=== PATIENT | female | born 1975 | race Caucasian/White ===

== ENCOUNTER 2018-12-03 11:33 | Emergency (ER) | payer OTHER ==
[2018-12-03 11:49] VITALS: PULSE 91; TEMP 98.1
--- NOTE | 2018-12-03 12:36 | ED ---
General Adult HPI - General Chief complaint: ENT Stated complaint: Ear Pain/sore throat Time Seen by Provider: 12/03/18 12:07 Source: patient, RN notes reviewed Mode of arrival: ambulatory Limitations: no limitations - History of Present Illness Initial comments: 43-year-old female presents to the emergency department for left ear pain 1 hour. Patient states she has been sick with bronchitis for about a week and has had sinus pressure as well. Patient states that she went to blow her nose today and had a severe pain in the left ear. Patient denies fevers or chills. Patient denies shortness of breath. Patient also complains of a sore throat.Patient has no other complaints at this time including shortness of breath, chest pain, abdominal pain, nausea or vomiting, headache, or visual changes. - Related Data Home Medications Medication Instructions Recorded Confirmed Ranitidine HCl [Zantac] 150 mg PO BID 04/07/14 12/03/18 amLODIPine BESYLATE/BENAZEPRIL 10 mg PO DAILY 04/07/14 12/03/18 [Lotrel 5-10 mg Capsule] metFORMIN HCL 1,000 mg PO DAILY 04/07/14 12/03/18 Acyclovir 400 mg PO TID PRN 12/03/18 12/03/18 Albuterol Inhaler [Ventolin Hfa 1 - 2 puff INHALATION RT-Q6H PRN 12/03/18 12/03/18 Inhaler] Atorvastatin [Lipitor] 20 mg PO HS 12/03/18 12/03/18 Azithromycin [Zithromax Z-pack] See Taper PO DAILY 12/03/18 12/03/18 DULoxetine HCL [Cymbalta] 60 mg PO DAILY 12/03/18 12/03/18 Flecainide [Tambocor] 50 mg PO Q12HR 12/03/18 12/03/18 Insulin Glargine,Hum.rec.anlog 44 unit SQ PC-SUPPER 12/03/18 12/03/18 [Basaglar Kwikpen U-100] Insulin Regular, Human [humulin R 25 unit SQ BID 12/03/18 12/03/18 U-500 Kwikpen] LORazepam [Ativan] 2 mg PO TID PRN 12/03/18 12/03/18 Loratadine [Claritin] 10 mg PO DAILY 12/03/18 12/03/18 Metoprolol Succinate [Toprol Xl] 100 mg PO DAILY 12/03/18 12/03/18 Warfarin [Coumadin] 2.5 mg PO DAILY 12/03/18 12/03/18 predniSONE See Taper PO DAILY 12/03/18 12/03/18 Previous Rx's Medication Instructions Recorded Amoxicillin/Potassium Clav 1 tab PO Q12HR #20 tab 12/03/18 [Augmentin 875-125 Tablet] Fluticasone Propionate [Flonase 1 spray EA NOSTRIL DAILY PRN #9.9 12/03/18 Allergy Relief] ml Allergies Allergy/AdvReac Type Severity Reaction Status Date / Time No Known Allergies Allergy Verified 12/03/18 12:16 Review of Systems ROS Statement: Those systems with pertinent positive or pertinent negative responses have been documented in the HPI. ROS Other: All systems not noted in ROS Statement are negative. Past Medical History Past Medical History: Asthma, Diabetes Mellitus, Hypertension Additional Past Medical History / Comment(s): Herpes type 2, "some kind of heart condition, electrical part doesn't work" divirticulitis History of Any Multi-Drug Resistant Organisms: None Reported Past Surgical History: Orthopedic Surgery Additional Past Surgical History / Comment(s): left knee surgery Past Psychological History: Anxiety, Depression Smoking Status: Former smoker Past Alcohol Use History: None Reported Past Drug Use History: None Reported General Exam Limitations: no limitations General appearance: alert, in no apparent distress Head exam: Present: atraumatic, normocephalic, normal inspection Eye exam: Present: normal appearance, PERRL, EOMI. Absent: scleral icterus, conjunctival injection, periorbital swelling ENT exam: Present: normal exam, normal oropharynx (No tonsillar exudates noted bilaterally, uvula midline), mucous membranes moist, normal external ear exam. Absent: TM's normal bilaterally ([Membrane erythematous, no perforation noted at this time) Neck exam: Present: normal inspection, full ROM. Absent: tenderness, meningismus, lymphadenopathy Respiratory exam: Present: normal lung sounds bilaterally. Absent: respiratory distress, wheezes, rales, rhonchi, stridor Cardiovascular Exam: Present: regular rate, normal rhythm, normal heart sounds. Absent: systolic murmur, diastolic murmur, rubs, gallop, clicks Neurological exam: Present: alert, oriented X3, CN II-XII intact Psychiatric exam: Present: normal affect, normal mood Course Vital Signs 12/03/18 12/03/18 11:47 12:38 Temperature 98.1 F Pulse Rate 91 91 Respiratory 22 16 Rate Blood Pressure 136/84 149/91 O2 Sat by Pulse 96 95 Oximetry Medical Decision Making - Medical Decision Making 43-year-old female presents for left ear pain after coughing and blowing her nose earlier today. Patient states she felt a pop in her left ear. She has had sinus congestion and a cough for about a week. On exam patient does have an erythematous left tympanic membranes however I do not see any evidence of perforation. However did discuss attempting to keep water out of ear until she can follow up with her primary care provider or ENT. Patient was started on az ithromycin yesterday, I will switch this to Augmentin as as of now her chief complaint is congestion and ear pain. Patient will follow up with primary care. She will return here if she has any worsening symptoms. Disposition Clinical Impression: Otitis media, Pharyngitis Disposition: HOME SELF-CARE Condition: Good Instructions (If sedation given, give patient instructions): Earache (ED) Additional Instructions: Please take Augmentin as directed. Please follow-up with primary care or ENT in 1-2 days. Please return to the emergency department if you have any worsening symptoms. Prescriptions: Amoxicillin/Potassium Clav [Augmentin 875-125 Tablet] 1 tab PO Q12HR #20 tab Fluticasone Propionate [Flonase Allergy Relief] 1 spray EA NOSTRIL DAILY PRN #9.9 ml PRN Reason: Congestion Is patient prescribed a controlled substance at d/c from ED?: No Referrals: Angel Burrows DO [Primary Care Provider] - 1-2 days Randy Rivero DO [Doctor of Osteopathic Medicine] - 1-2 days Time of Disposition: 12:34
[2018-12-03 12:39] VITALS: BP 149/91; RESP 16
== END 2018-12-03 13:04 | disposition home or self-care (01) ==
LOC: EC 11:33
DX: H66.92 Otitis media, unspecified, left ear (principal); J02.9 Acute pharyngitis, unspecified; J45.909 Unspecified asthma, uncomplicated; E11.9 Type 2 diabetes mellitus without complications; I10 Essential (primary) hypertension; F32.9 Major depressive disorder, single episode, unspecified; F41.9 Anxiety disorder, unspecified; Z87.891 Personal history of nicotine dependence; Z79.01 Long term (current) use of anticoagulants; Z79.82 Long term (current) use of aspirin; Z79.4 Long term (current) use of insulin; Z79.899 Other long term (current) drug therapy
CPT/HCPCS: 99282

== ENCOUNTER → 2019-02-13 | Outpatient (CLI) | payer OTHER ==
--- NOTE | 2019-02-13 15:20 | CT ---
EXAMINATION TYPE: CT iac wo con DATE OF EXAM: 02/13/2019 COMPARISON: None HISTORY: headaches, dizziness, vertigo CT DLP: 117.2mGycm Automated exposure control for dose reduction was used. FINDINGS: The external auditory canals are patent bilaterally. Mastoid air cells show no evidence of abnormal opacification bilaterally. The middle ear ossicles are symmetric and unremarkable. There is no evidence of suspicious surrounding soft tissue density to suggest cholesteatoma. The scutum is preserved bilaterally. The cochlea and the semicircular canals are symmetric and unremarkable. Ves tibular aqueduct and internal carotid canal appear unremarkable. Temporomandibular joints are mainta ined bilaterally. IMPRESSION: No significant abnormality seen to account for patient's symptoms.
== END | disposition home or self-care (01) ==
LOC: RADCTMAIN 14:38
PROVIDERS: ATTEND Psychiatry & Neurology Neurology
DX: H81.49 Vertigo of central origin, unspecified ear (principal); R93.0 Abnormal findings on diagnostic imaging of skull and head, not elsewhere classified
CPT/HCPCS: 70480

== ENCOUNTER 2019-04-13 09:27 | Emergency (ER) | payer OTHER ==
[2019-04-13 09:36] VITALS: RESP 18
[2019-04-13] MEDS ORDERED: SODIUM CHLORIDE 0.9% 500 ML 500 ML IV STA (09:44)
[2019-04-13] MEDS ORDERED: ONDANSETRON 4 MG/2 ML VIAL IVP STA (09:44)
[2019-04-13] MEDS ORDERED: SODIUM CHLORIDE 0.9% 1,000 ML IV STA (09:44)
[2019-04-13] MEDS ORDERED: MORPHINE SULFATE 4 MG/ML SYRINGE IV STA (09:44)
[2019-04-13] MEDS ORDERED: FAMOTIDINE 20 MG/2 ML VIAL IV STA (09:49)
--- NOTE | 2019-04-13 09:52 | ED ---
General Adult HPI - General Chief complaint: Nausea/Vomiting/Diarrhea Stated complaint: body pain, nausea, vomiting Time Seen by Provider: 04/13/19 09:37 Source: patient, RN notes reviewed Mode of arrival: ambulatory Limitations: no limitations - History of Present Illness Initial comments: Patient is a pleasant 43-year-old female presenting to the emergency Department with complaints of nausea and vomiting. Onset of symptoms was yesterday. Symptoms continue. Patient has vomited at least 6 or 7 times. No known bad food. Patient complains of diffuse abdominal discomfort which she attributes to her vomiting. Patient also states her A. fib is acting up. Patient also states her blood sugars [id number]. Patient last checked her blood sugar with a reading of 380. Patient does have lower back discomfort however this is chronic and unchanged. - Related Data Home Medications Medication Instructions Recorded Confirmed Ranitidine HCl [Zantac] 150 mg PO BID 04/07/14 04/13/19 amLODIPine BESYLATE/BENAZEPRIL 10 mg PO DAILY 04/07/14 04/13/19 [Lotrel 5-10 mg Capsule] metFORMIN HCL 1,000 mg PO BID 04/07/14 04/13/19 Albuterol Inhaler [Ventolin Hfa 1 - 2 puff INHALATION RT-Q6H PRN 12/03/18 04/13/19 Inhaler] Atorvastatin [Lipitor] 20 mg PO HS 12/03/18 04/13/19 DULoxetine HCL [Cymbalta] 60 mg PO DAILY 12/03/18 04/13/19 Flecainide [Tambocor] 50 mg PO Q12HR 12/03/18 04/13/19 Insulin Glargine,Hum.rec.anlog 46 unit SQ PC-SUPPER 12/03/18 04/13/19 [Basaglar Kwikpen U-100] Insulin Regular, Human [humulin R 25 unit SQ BID 12/03/18 04/13/19 U-500 Kwikpen] LORazepam [Ativan] 2 mg PO TID PRN 12/03/18 04/13/19 Loratadine [Claritin] 10 mg PO DAILY 12/03/18 04/13/19 Metoprolol Succinate [Toprol Xl] 100 mg PO DAILY 12/03/18 04/13/19 Warfarin [Coumadin] 2.5 mg PO DAILY 12/03/18 04/13/19 [id number] 1 tab PO Q4HR PRN 04/13/19 04/13/19 [Excedrin] DULoxetine HCL [Cymbalta] 30 mg PO DAILY 04/13/19 04/13/19 traMADol HCL [Ultram] 50 mg PO TID PRN 04/13/19 04/13/19 Allergies Allergy/AdvReac Type Severity Reaction Status Date / Time No Known Allergies Allergy Verified 04/13/19 09:46 Review of Systems ROS Statement: Those systems with pertinent positive or pertinent negative responses have been documented in the HPI. ROS Other: All systems not noted in ROS Statement are negative. Constitutional: Denies: fever Eyes: Denies: eye pain ENT: Denies: ear pain Respiratory: Denies: cough Cardiovascular: Reports: palpitations. Denies: chest pain Endocrine: Reports: fatigue Gastrointestinal: Reports: abdominal pain, nausea, vomiting Genitourinary: Denies: urgency, dysuria Musculoskeletal: Reports: as per HPI Skin: Denies: rash Neurological: Denies: weakness Past Medical History Past Medical History: Atrial Fibrillation, Asthma, Diabetes Mellitus, Hypertension Additional Past Medical History / Comment(s): Herpes type 2, "some kind of heart condition, electrical part doesn't work" divirticulitis chronic back pain History of Any Multi-Drug Resistant Organisms: None Reported Past Surgical History: Orthopedic Surgery Additional Past Surgical History / Comment(s): left knee surgery Past Psychological History: Anxiety, Depression Smoking Status: Former smoker Past Alcohol Use History: None Reported Past Drug Use History: None Reported General Exam Limitations: no limitations General appearance: alert, in no apparent distress, obese Head exam: Present: atraumatic Eye exam: Present: normal appearance ENT exam: Present: normal oropharynx Neck exam: Present: normal inspection Respiratory exam: Present: normal lung sounds bilaterally Cardiovascular Exam: Present: tachycardia Expanded Peripheral pulses: 2+: Dorsalis Pedis (R), Dorsalis Pedis (L) GI/Abdominal exam: Present: soft, tenderness (Moderate diffuse tenderness). Absent: distended Extremities exam: Present: normal inspection. Absent: pedal edema, calf tendern ess Back exam: Present: normal inspection Neurological exam: Present: alert Psychiatric exam: Present: normal affect, normal mood Skin exam: Present: normal color Course Vital Signs 04/13/19 04/13/19 04/13/19 09:31 11:00 11:42 Temperature 97.5 F L Pulse Rate 123 H 141 H Respiratory 18 18 Rate Blood Pressure 125/108 144/99 159/111 O2 Sat by Pulse 95 95 Oximetry EKG Findings - EKG Comments: EKG Findings:: A. fib with RVR, rate 149. QRS 96. QT 312. QTC 491. Normal axis. Normal QRS. Nonspecific ST-T. Medical Decision Making - Medical Decision Making Patient reevaluated and feeling much better. Patient sitting up at bedside and requesting discharge. Case was earlier discussed with Dr. Maurer who did agree with admission covering for Dr. Burrows. Patient is strongly advised against leaving. Patient is advised that she would leave and will be consulted medical advice. Patient is strongly advised of concern especially regarding elevated continued heart rate. Patient is advised that she could likely go into heart failure which could lead to . Patient is also advised of other lab abnormalities and recommendation for inpatient treatment. Patient refuses to stay stating that she has a mother at home recently broke her hip and needs help. Patient states Dr. Gamboa is aware of her heart condition and she will follow-up with him. Patient is again strongly advised to stay and not leave AGAINST MEDICAL ADVICE. Patient is of her own mind and able to demonstrate medical decision making. Patient will leave AGAINST MEDICAL ADVICE. - Lab Data Result diagrams: 04/13/19 10:34 04/13/19 11:35 Lab Results 04/13/19 04/13/19 04/13/19 Range/Units 10:34 11:35 11:35 WBC 25.9 H (3.8-10.6) k/uL RBC 5.42 H (3.80-5.40) m/uL Hgb 15.7 (11.4-16.0) gm/dL Hct 48.1 H (34.0-46.0) % MCV 88.7 (80.0-100.0) fL MCH 29.0 (25.0-35.0) pg MCHC 32.7 (31.0-37.0) g/dL RDW 14.5 (11.5-15.5) % Plt Count 242 (150-450) k/uL Neutrophils % 88 % Lymphocytes % 7 % Monocytes % 4 % Eosinophils % 0 % Basophils % 0 % Neutrophils # 22.7 H (1.3-7.7) k/uL Lymphocytes # 1.9 (1.0-4.8) k/uL Monocytes # 0.9 (0-1.0) k/uL Eosinophils # 0.1 (0-0.7) k/uL Basophils # 0.1 (0-0.2) k/uL PT (9.0-12.0) sec INR (<1.2) APTT (22.0-30.0) sec Sodium 136 L (137-145) mmol/L Potassium 4.2 (3.5-5.1) mmol/L Chloride 97 L (98-107) mmol/L Carbon Dioxide 24 (22-30) mmol/L Anion Gap 15 mmol/L BUN 28 H (7-17) mg/dL Creatinine 0.61 (0.52-1.04) mg/dL Est GFR (CKD-EPI)AfAm >90 (>60 ml/min/1.73 sqM) Est GFR (CKD-EPI)NonAf >90 (>60 ml/min/1.73 sqM) Glucose 352 H (74-99) mg/dL Calcium 9.4 (8.4-10.2) mg/dL Total Bilirubin 2.0 H (0.2-1.3) mg/dL AST 33 (14-36) U/L ALT 30 (9-52) U/L Alkaline Phosphatase 87 (38-126) U/L Creatine Kinase 29 L (30-135) U/L Troponin I 0.050 H* (0.000-0.034) ng/mL Total Protein 7.2 (6.3-8.2) g/dL Albumin 4.0 (3.5-5.0) g/dL Amylase 59 (30-110) U/L Lipase 48 (23-300) U/L Urine Color Urine Appearance (Clear) Urine pH (5.0-8.0) Ur Specific [place] (1.001-1.035) Urine Protein (Negative) Urine Glucose (UA) (Negative) Urine Ketones (Negative) Urine Blood (Negative) Urine Nitrite (Negative) Urine Bilirubin (Negative) Urine Urobilinogen (<2.0) mg/dL Ur Leukocyte Esterase (Negative) Urine RBC (0-5) /hpf Urine WBC (0-5) /hpf Ur Squamous Epith Cells (0-4) /hpf Urine Mucus (None) /hpf Acetone, Qual Negative (Negative) 04/13/19 04/13/19 Range/Units 11:35 11:48 WBC (3.8-10.6) k/uL RBC (3.80-5.40) m/uL Hgb (11.4-16.0) gm/dL Hct (34.0-46.0) % MCV (80.0-100.0) fL MCH (25.0-35.0) pg MCHC (31.0-37.0) g/dL RDW (11.5-15.5) % Plt Count (150-450) k/uL Neutrophils % % Lymphocytes % % Monocytes % % Eosinophils % % Basophils % % Neutrophils # (1.3-7.7) k/uL Lymphocytes # (1.0-4.8) k/uL Monocytes # (0-1.0) k/uL Eosinophils # (0-0.7) k/uL Basophils # (0-0.2) k/uL PT 10.9 (9.0-12.0) sec INR 1.0 (<1.2) APTT 19.1 L (22.0-30.0) sec Sodium (137-145) mmol/L Potassium (3.5-5.1) mmol/L Chloride (98-107) mmol/L Carbon Dioxide (22-30) mmol/L Anion Gap mmol/L BUN (7-17) mg/dL Creatinine (0.52-1.04) mg/dL Est GFR (CKD-EPI)AfAm (>60 ml/min/1.73 sqM) Est GFR (CKD-EPI)NonAf (>60 ml/min/1.73 sqM) Glucose (74-99) mg/dL Calcium (8.4-10.2) mg/dL Total Bilirubin (0.2-1.3) mg/dL AST (14-36) U/L ALT (9-52) U/L Alkaline Phosphatase (38-126) U/L Creatine Kinase (30-135) U/L Troponin I (0.000-0.034) ng/mL Total Protein (6.3-8.2) g/dL Albumin (3.5-5.0) g/dL Amylase (30-110) U/L Lipase (23-300) U/L Urine Color Yellow Urine Appearance Cloudy H (Clear) Urine pH 6.0 (5.0-8.0) Ur Specific [place] 1.032 (1.001-1.035) Urine Protein 2+ H (Negative) Urine Glucose (UA) 4+ H (Negative) Urine Ketones 1+ H (Negative) Urine Blood Negative (Negative) Urine Nitrite Negative (Negative) Urine Bilirubin Negative (Negative) Urine Urobilinogen <2.0 (<2.0) mg/dL Ur Leukocyte Esterase Negative (Negative) Urine RBC 2 (0-5) /hpf Urine WBC 4 (0-5) /hpf Ur Squamous Epith Cells 15 H (0-4) /hpf Urine Mucus Rare H (None) /hpf Acetone, Qual (Negative) - Radiology Data Radiology results: report reviewed (Computed tomography scan of the abdomen pelvis shows hepatic steatosis. Mild ileus. Left adnexal cystic lesion.) Critical Care Time Critical Care Time: Yes Total Critical Care Time: 32 Disposition Clinical Impression: Atrial fibrillation with RVR, Hyperglycemia, Vomiting, Ileus Disposition: Left Against Medical Advice Condition: Serious Instructions (If sedation given, give patient instructions): Acute Nausea and Vomiting (ED), A-fib (Atrial Fibrillation) (ED) Additional Instructions: You are leaving AGAINST MEDICAL ADVICE. U have been advised not to leave the emergency department. There is concern for serious health problems and is possible. Permanent disability is also possible. Please follow-up with your primary doctor as well as your heart doctor tomorrow. Return anytime for any concerns or if you are agreeable to stay in the hospital. Is patient prescribed a controlled substance at d/c from ED?: No Referrals: Angel Burrows DO [Primary Care Provider] - 1-2 days Time of Disposition: 14:07
[2019-04-13] MEDS ORDERED: DILTIAZEM 125 MG in SODIUM CHLORIDE 0.9% 100 ML IV SCH (10:00)
[2019-04-13 10:59] LABS: Basophils # (A) 0.1 k/uL (0-0.2); Basophils % (A) 0 %; Eosinophils # (A) 0.1 k/uL (0-0.7); Eosinophils % (A) 0 %; HCT 48.1 % (34.0-46.0); HGB 15.7 gm/dL (11.4-16.0); Lymphocytes # (A) 1.9 k/uL (1.0-4.8); Lymphocytes % (A) 7 %; MCHC 32.7 g/dL (31.0-37.0); MCV 88.7 fL (80.0-100.0); Monocytes # (A) 0.9 k/uL (0-1.0); Monocytes % (A) 4 %; Neutrophils # (A) 22.7 k/uL (1.3-7.7); Neutrophils % (A) 88 %; Platelet Count 242 k/uL (150-450); RBC 5.42 m/uL (3.80-5.40); RDW 14.5 % (11.5-15.5); WBC 25.9 k/uL (3.8-10.6)
[2019-04-13 12:05] LABS: Appearance,Urine Cloudy (Clear); Bilirubin,Urine Negative (Negative); Blood,Urine Negative (Negative); Color,Urine Yellow; Glucose,Urine (UA) 4+ (Negative); Ketones,Urine 1+ (Negative); Leukocyte Esterase,Urine Negative (Negative); Mucus,Urine Rare /hpf; Nitrite,Urine Negative (Negative); Protein,Urine 2+ (Negative); RBC,Urine 2 /hpf (0-5); Specific Gravity,Urine 1.032 (1.001-1.035); Squamous Epithelial Cell,Urine 15 /hpf (0-4); Urobilinogen,Urine <2.0 mg/dL (<2.0); WBC,Urine 4 /hpf (0-5)
[2019-04-13 12:06] LABS: ALT 30 U/L (9-52); AST 33 U/L (14-36); African American GFR (CKD) >90 (>60 ml/min/1.73 sqM); Alkaline Phosphatase 87 U/L (38-126); Amylase 59 U/L (30-110); Anion Gap 15 mmol/L; Blood Urea Nitrogen 28 mg/dL (7-17); Calcium 9.4 mg/dL (8.4-10.2); Carbon Dioxide 24 mmol/L (22-30); Chloride 97 mmol/L (98-107); Glucose 352 mg/dL (74-99); Potassium 4.2 mmol/L (3.5-5.1); Sodium 136 mmol/L (137-145); Total Protein 7.2 g/dL (6.3-8.2)
[2019-04-13 12:21] LABS: Prothrombin Time 10.9 sec (9.0-12.0)
[2019-04-13 12:22] LABS: Creatine Kinase 29 U/L (30-135)
[2019-04-13 12:39] LABS: Partial Thromboplastin Time 19.1 sec (22.0-30.0)
--- NOTE | 2019-04-13 13:36 | CT ---
EXAMINATION TYPE: CT abdomen pelvis w con DATE OF EXAM: 04/13/2019 HISTORY: Bilateral upper quadrant abdominal pain and vomiting CT DLP: 4410mGycm Automated Exposure Control for Dose Reduction was Utilized. CONTRAST: CT scan of the abdomen and pelvis is performed with IV Contrast, patient injected with 100 mL of Isov ue 300. COMPARISON: None. FINDINGS: LOWER THORAX: Heart is mildly enlarged. LIVER/GB: Hepatic parenchyma is diffusely hypoattenuated in comparison to that of the spleen, most co mmonly seen in hepatic steatosis. This finding limits evaluation for hepatic masses. No gross evidenc e of hepatic mass is seen. No intrahepatic biliary ductal dilatation. No cholelithiasis. Haziness on image 37 appears to represent volume averaging surrounding the gallbladder as this is not reproduced on coronal imaging. PANCREAS: Mild pancreatic parenchymal atrophy without ductal dilatation. SPLEEN: No significant abnormality is seen. ADRENALS: No significant abnormality is seen. KIDNEYS: There is a lobulated contour the kidneys however no focal mass is seen nor hydronephrosis. F indings may represent sequela of multiple prior injury or persistent lobulation. BOWEL: Appendix and terminal ileum are unremarkable. Few scattered colonic diverticula are seen witho ut pericolonic fat stranding. Transverse colon is upper limits of normal size measuring 5.9 cm contai jason nonformed stool dependently. Fecal stasis is seen of the ascending colon. No dilated large or sm all bowel is seen. Few air-fluid levels in the left mid abdomen in nondilated small bowel measuring 2 .7 cm. UTERUS/ADNEXA: There is a left adnexal cystic lesion measuring 3.8 cm. Uterus is slightly heterogenou s as is the cervix. LYMPH NODES: No greater than 1cm abdominal or pelvic lymph nodes are appreciated. OSSEOUS STRUCTURES: Nonspecific sclerotic focus of the left sacrum seen on image 75 may represent a b [place]. Moderate degenerative changes of the thoracic spine and mild of the lumbar spine. IMPRESSION: 1. Moderate degree hepatic steatosis. 2. No CT evidence of acute appendicitis, bowel obstruction, nor hydronephrosis. 3. Nonformed stool in the transverse colon can be seen in diarrhea with moderate degree colonic fecal stasis of the ascending colon. Upper limits of normal size of the transverse colon and a solitary lo op of small bowel with an air-fluid level suggests overall increased transit time/mild ileus. 4. Left adnexal cystic lesion measuring 3.8 cm, heterogeneity of the uterus and heterogeneity of the cervix for which follow-up pelvic ultrasound is recommended. The need to perform this ultrasound chris gently versus on an outpatient basis should be correlated with clinical symptoms.
[2019-04-13] MEDS ORDERED: DILTIAZEM DRIP BOLUS FROM BAG 1 MG SOLN IV ONE (14:07)
[2019-04-13] MEDS ORDERED: INSULIN REGULAR 100 UNIT/ML VIAL SQ ONE (14:08)
[2019-04-13 15:09] VITALS: BP 148/107; PULSE 74; TEMP 97.9
== END 2019-04-13 15:07 | disposition left against medical advice (07) ==
LOC: EC 09:27
DX: K56.7 Ileus, unspecified (principal); E11.65 Type 2 diabetes mellitus with hyperglycemia; J45.909 Unspecified asthma, uncomplicated; I48.91 Unspecified atrial fibrillation; I10 Essential (primary) hypertension; F41.9 Anxiety disorder, unspecified; F32.9 Major depressive disorder, single episode, unspecified; Z79.4 Long term (current) use of insulin; Z79.51 Long term (current) use of inhaled steroids; Z79.01 Long term (current) use of anticoagulants; Z79.899 Other long term (current) drug therapy; Z87.891 Personal history of nicotine dependence; Z53.20 Procedure and treatment not carried out because of patient's decision for unspecified reasons
CPT/HCPCS: 99291; 96365; 96366 ×2; 96375 ×3; 96361; 36415; 93005; 80053; 82150; 82550; 82009; 83690; 84484; 85025; 85610; 85730; 81001; 74177; J2270; J2405; Q9967

== ENCOUNTER 2019-04-13 21:29 | Inpatient (IN) | payer OTHER ==
[~2019-04-13 21:29] MED LIST: AMIODARONE 50 MG/ML 3 ML VIAL IV ONE; ATROPINE SULFATE 0.1 MG/ML 10ML SYRINGE ONE; CALCIUM CHLORIDE 100 MG/ML 10 ML SYRINGE ONE; DEXTROSE 5% IN WATER 50 ML BAG ONE; EPINEPHrine 10 ML SYRINGE (0.1 MG/ML) ONE; SODIUM BICARB 8.4% 50 ML SYR (1 MEQ/ML) ONE
[2019-04-13] MEDS ORDERED: SODIUM CHLORIDE 0.9% 1,000 ML IV STA (21:58)
--- NOTE | 2019-04-13 22:14 | ED ---
Abdominal Pain HPI - General Chief Complaint: Abdominal Pain Stated Complaint: SOB,Afib Neck/Hip Pain Time Seen by Provider: 04/13/19 21:56 Source: patient Mode of arrival: ambulatory Limitations: no limitations - History of Present Illness Initial Comments: Reyna is a 43yo female with past medical she most NICU for A. fib, morbid obesity, poorly controlled insulin-dependent diabetes. Patient was seen and evaluated in the emergency department earlier today which time she was noted to be in A. fib with RVR, CT of the abdomen was concerning for ileus, labs were concerning for leukocytosis, subtherapeutic INR, elevated troponin. Despite the significant lab abnormalities the patient chose to leave AMA. Patient reports that she left here and was home and slept throughout the day she did not take any medications. This evening she was feeling much worse so she came to the ER for reevaluation. - Related Data Home Medications Medication Instructions Recorded Confirmed Ranitidine HCl [Zantac] 150 mg PO BID 04/07/14 04/13/19 amLODIPine BESYLATE/BENAZEPRIL 1 cap PO DAILY 04/07/14 04/13/19 [Lotrel 5-10 mg Capsule] metFORMIN HCL 1,000 mg PO BID 04/07/14 04/13/19 Albuterol Inhaler [Ventolin Hfa 1 - 2 puff INHALATION RT-Q6H PRN 12/03/18 04/13/19 Inhaler] Atorvastatin [Lipitor] 20 mg PO HS 12/03/18 04/13/19 DULoxetine HCL [Cymbalta] 60 mg PO DAILY 12/03/18 04/13/19 Flecainide [Tambocor] 50 mg PO Q12HR 12/03/18 04/13/19 Insulin Glargine,Hum.rec.anlog 46 unit SQ PC-SUPPER 12/03/18 04/13/19 [Basaglar Kwikpen U-100] Insulin Regular, Human [humulin R 25 unit SQ BID 12/03/18 04/13/19 U-500 Kwikpen] LORazepam [Ativan] 2 mg PO TID PRN 12/03/18 04/13/19 Loratadine [Claritin] 10 mg PO DAILY 12/03/18 04/13/19 Metoprolol Succinate [Toprol Xl] 100 mg PO DAILY 12/03/18 04/13/19 Warfarin [Coumadin] 2.5 mg PO DAILY 12/03/18 04/13/19 Urenfyt-Jzqy-Fpku [id number] 1 tab PO Q4HR PRN 04/13/19 04/13/19 [Excedrin] DULoxetine HCL [Cymbalta] 30 mg PO DAILY 04/13/19 04/13/19 traMADol HCL [Ultram] 50 mg PO TID PRN 04/13/19 04/13/19 Allergies Allergy/AdvReac Type Severity Reaction Status Date / Time No Known Allergies Allergy Verified 04/13/19 22:02 Review of Systems ROS Statement: Those systems with pertinent positive or pertinent negative responses have been documented in the HPI. ROS Other: All systems not noted in ROS Statement are negative. Past Medical History Past Medical History: Atrial Fibrillation, Asthma, Diabetes Mellitus, Hypertension Additional Past Medical History / Comment(s): Herpes type 2, "some kind of heart condition, electrical part doesn't work" divirticulitis chronic back pain History of Any Multi-Drug Resistant Organisms: None Reported Past Surgical History: Orthopedic Surgery Additional Past Surgical History / Comment(s): left knee surgery Past Psychological History: Anxiety, Depression Smoking Status: Former smoker Past Alcohol Use History: None Reported Past Drug Use History: None Reported General Exam - General Exam Comments Initial Comments: Physical Exam GENERAL: Morbidly obese female in moderate distress HENT: Normocephalic, Atraumatic. EYES: PERRL, EOMI PULMONARY: Tachypnea CARDIOVASCULAR: Tachycardia, irregularly irregular Warm and well perfused extremities ABDOMEN: Mild tenderness SKIN: Warm Diaphoretic : Deferred NEUROLOGIC: Patient is alert and oriented x3. Moving all extremities spontaneously MUSCULOSKELETAL: Normal extremities with adequate strength and full range of motion PSYCHIATRIC: Normal psychiatric evaluation. Limitations: no limitations Course Vital Signs 04/13/19 04/13/19 04/13/19 21:31 22:17 22:18 Temperature 97.9 F Pulse Rate 92 200 H 179 H Respiratory 20 21 Rate Blood Pressure 105/78 O2 Sat by Pulse 95 Oximetry 04/13/19 04/13/19 04/13/19 22:30 23:00 23:05 Temperature Pulse Rate 146 H 174 H 177 H Respiratory 37 H 42 H 35 H Rate Blood Pressure 96/47 72/53 81/70 O2 Sat by Pulse 92 L 93 L 100 Oximetry 04/13/19 04/13/19 04/13/19 23:15 23:29 23:30 Temperature Pulse Rate 150 H 170 H 181 H Respiratory 35 H 30 H 31 H Rate Blood Pressure 99/49 91/75 99/49 O2 Sat by Pulse 93 L 95 95 Oximetry 04/14/19 04/14/19 04/14/19 00:00 00:09 00:53 Temperature Pulse Rate 163 H 168 H Respiratory 24 38 H 32 H Rate Blood Pressure 88/60 106/87 74/36 O2 Sat by Pulse 97 96 Oximetry 04/14/19 04/14/19 04/14/19 01:08 01:21 01:44 Temperature 99.3 F Pulse Rate 141 H 105 H 114 H Respiratory 30 H 18 20 Rate Blood Pressure 129/93 111/59 86/48 O2 Sat by Pulse 97 99 98 Oximetry 04/14/19 04/14/19 04/14/19 02:01 02:57 03:13 Temperature 98.9 F Pulse Rate 117 H 112 H 116 H Respiratory 25 H 20 25 H Rate Blood Pressure 139/102 126/87 108/49 O2 Sat by Pulse 98 94 L 96 Oximetry - Reevaluation(s) Reevaluation #1: Patient appeared to become altered, should poor perfusion and was hypotensive. There was consideration of cardioversion considering that she remain somewhat tachycardic however given that the patient is going to require excessive IV fluids throughout this stay decision was made first intubate the patient. Patient was intubated using a kaleidoscope there is no episodes of hypoxia or bradycardia. After and patient patient's blood pressure improving heart rate in the 130s. 04/14/19 01:21 Reevaluation #2: Patient was noted to become bradycardic, cardizem was discontinued and Atropine was given however the patients rate continued to decrease she develop PE A and resuscitation was initiated. Given that the patient was profoundly acidotic decision was made to give repeated doses of bicarbonate addition to epinephrine and calcium. Patient was coded for approximately 17 minutes prior to ROSC 04/14/19 03:15 04/14/19 03:21 Procedures - Central Line Placement Right IJ Consent Obtained: verbal consent, written consent Patient Placed on Monitor/Pulse Ox: Yes Prep: mask, gown, gloves Central Line Prep: sterile drapes applied Local Anesthesia Used: Lidocaine 1% Amount of Anesthesia Used (mls): 3 Ultrasound Used for Placement: Yes Central Line Lumen Inserted: triple Bloods Obtained for Lab: Yes Central Line Position: good blood return, all ports aspirated, flushed, capped, sutured in place with nylon Dressing Applied: Tegaderm Patient Tolerated Procedure: well - Intubation Sedative: Versed Paralytic: Succinylcholine Laryngoscope: fiber optic video scope Size: 4 Assist Device Used: fiber optic device ET Tube Size: 7.5 ET Tube Uncuffed: No Tube Secured Depth (cm): 22 Tube Secured Location: teeth Tube Placement Confirmation: visualized tube passing through cords, equal breath sounds bilaterally, no breath sounds over epigastrium, confirmation by capnometry Patient Tolerated Procedure: no complications Medical Decision Making - Medical Decision Making Patient was seen and evaluated, history is obtained from the patient and review of medical record and labs earlier today Patient was seen and evaluated earlier she is hyperglycemic, elevated troponin, leukocytosis, computed tomography scan concerning for ileus Repeat labs are ordered Repeat EKG was obtained, at this time patient is in A. fib with RVR with a rate of 200 Heparin without a bolus due to the fact patient received a bolus earlier today and Cardizem were ordered Patient her rate improving on Cardizem however anytime the patient makes any attempt to move and better exert herself heart rate goes back up to the 180s, Cardizem was increased to 15/h Patient care was discussed with Dr. Corea who was available in the emergency department evaluated the patient's EKG. Agrees with continuing Cardizem, recommends adding by mouth metoprolol, continuing with heparin. The patient's heart rate does not improve recommends amiodarone. If patient becomes unstable recommends cardioversion. Patient attempted to move herself from the bed to the bedside commode without assistance and inadvertently removed her peripheral vascular access. Attempt made to reestablish vascular access however given that the patient needs multiple medications and has poor peripheral vascular access decision was made to place a right IJ central line. Was placed without difficulty. At 2:20 AM patient was noted to become bradycardic, Cardizem was discontinued, atropine was given, patient went into PE arrest and resuscitation measures were initiated. Patient was coded for approximately 17 minutes she received multiple doses of epinephrine, 3 aunts of sodium bicarb, 1 g of calcium. Patient was then noted to have return of spontaneous circulation with strong peripheral pulses. Heart rate in the 1 teens. Repeat EKG revealed sinus tachycardia. Repeat chest x-ray revealed a deep ET tube and significant pulmonary edema. Blood was obtained for repeat labs post cardiac arrest - Lab Data Result diagrams: 04/14/19 03:05 04/14/19 03:05 Lab Results 04/13/19 04/13/19 04/13/19 Range/Units 22:24 22:24 22:24 WBC 21.1 H (3.8-10.6) k/uL RBC 5.40 (3.80-5.40) m/uL Hgb 16.1 H (11.4-16.0) gm/dL Hct 51.2 H (34.0-46.0) % MCV 94.8 D (80.0-100.0) fL MCH 29.9 (25.0-35.0) pg MCHC 31.5 (31.0-37.0) g/dL RDW 14.1 (11.5-15.5) % Plt Count 244 (150-450) k/uL Neutrophils % 92 % Neutrophils % (Manual) 79 % Band Neutrophils % 11 % Lymphocytes % 4 % Lymphocytes % (Manual) 8 % Monocytes % 2 % Monocytes % (Manual) 2 % Eosinophils % 2 % Basophils % 0 % Neutrophils # 19.4 H (1.3-7.7) k/uL Neutrophils # (Manual) 18.90 H (1.3-7.7) k/uL Lymphocytes # 0.8 L (1.0-4.8) k/uL Lymphocytes # (Manual) 1.69 (1.0-4.8) k/uL Monocytes # 0.4 (0-1.0) k/uL Monocytes # (Manual) 0.42 (0-1.0) k/uL Eosinophils # 0.4 (0-0.7) k/uL Basophils # 0.1 (0-0.2) k/uL Nucleated RBCs 0 (0-0) /100 WBC Manual Slide Review Performed Large Platelets Present Hypochromasia Slight PT 11.0 (9.0-12.0) sec INR 1.0 (<1.2) APTT 19.1 L (22.0-30.0) sec Sodium 129 L (137-145) mmol/L Potassium 5.3 H (3.5-5.1) mmol/L Chloride 90 L (98-107) mmol/L Carbon Dioxide 17 L (22-30) mmol/L Anion Gap 22 mmol/L BUN 30 H (7-17) mg/dL Creatinine 1.04 (0.52-1.04) mg/dL Est GFR (CKD-EPI)AfAm 77 (>60 ml/min/1.73 sqM) Est GFR (CKD-EPI)NonAf 67 (>60 ml/min/1.73 sqM) Glucose 677 H* (74-99) mg/dL POC Glucose (mg/dL) (75-99) mg/dL POC Glu Manuscript Editor ID Calcium 8.7 (8.4-10.2) mg/dL Total Bilirubin 6.2 H (0.2-1.3) mg/dL AST 45 H (14-36) U/L ALT 19 (9-52) U/L Alkaline Phosphatase 87 (38-126) U/L Troponin I (0.000-0.034) ng/mL Total Protein 6.9 (6.3-8.2) g/dL Albumin 4.1 (3.5-5.0) g/dL Acetone, Qual (Negative) 04/13/19 04/13/19 04/14/19 Range/Units 22:24 22:30 00:06 WBC (3.8-10.6) k/uL RBC (3.80-5.40) m/uL Hgb (11.4-16.0) gm/dL Hct (34.0-46.0) % MCV (80.0-100.0) fL MCH (25.0-35.0) pg MCHC (31.0-37.0) g/dL RDW (11.5-15.5) % Plt Count (150-450) k/uL Neutrophils % % Neutrophils % (Manual) % Band Neutrophils % % Lymphocytes % % Lymphocytes % (Manual) % Monocytes % % Monocytes % (Manual) % Eosinophils % % Basophils % % Neutrophils # (1.3-7.7) k/uL Neutrophils # (Manual) (1.3-7.7) k/uL Lymphocytes # (1.0-4.8) k/uL Lymphocytes # (Manual) (1.0-4.8) k/uL Monocytes # (0-1.0) k/uL Monocytes # (Manual) (0-1.0) k/uL Eosinophils # (0-0.7) k/uL Basophils # (0-0.2) k/uL Nucleated RBCs (0-0) /100 WBC Manual Slide Review Large Platelets Hypochromasia PT (9.0-12.0) sec INR (<1.2) APTT (22.0-30.0) sec Sodium (137-145) mmol/L Potassium (3.5-5.1) mmol/L Chloride (98-107) mmol/L Carbon Dioxide (22-30) mmol/L Anion Gap mmol/L BUN (7-17) mg/dL Creatinine (0.52-1.04) mg/dL Est GFR (CKD-EPI)AfAm (>60 ml/min/1.73 sqM) Est GFR (CKD-EPI)NonAf (>60 ml/min/1.73 sqM) Glucose (74-99) mg/dL POC Glucose (mg/dL) 592 H (75-99) mg/dL POC Glu Manuscript Editor ID Lisha Hebert Calcium (8.4-10.2) mg/dL Total Bilirubin (0.2-1.3) mg/dL AST (14-36) U/L ALT (9-52) U/L Alkaline Phosphatase (38-126) U/L Troponin I 0.452 H* (0.000-0.034) ng/mL Total Protein (6.3-8.2) g/dL Albumin (3.5-5.0) g/dL Acetone, Qual Negative (Negative) - EKG Data EKG Comments: EKG was obtained due to tachycardia, EKG obtained at 2215, repeat is 200 rhythm is narrow complex, irregular consistent with A. fib with RVR. There is some ST depressions laterally consistent with ischemia likely secondary to tachycardia. Repeat EKG was obtained at 1:34 AM, rate is 1:30 rhythm is again narrow [employer] tachycardia irregularly irregular consistent with A. fib with RVR. QRS is 86, QTC is 406. There continues to Be mild ST depressions laterally consistent with ischemia likely secondary to tachycardia. Repeat EKG obtained at 2:46 AM after cardiac arrest. EKG with a rate of 116 rhythm is sinus tachycardia. HI is 112, cure is 90, QTC prolonged at 619. No acute ST elevations, there is ST depressions laterally concerning for ischemia. Critical Care Time Critical Care Time: Yes Total Critical Care Time: 150 Critical Care Time: Critical Care Time Critical care time was exclusive of separately billable procedures and treating other patients and teaching time. Critical care was necessary to treat or prevent imminent or life-threatening deterioration. Given the critical condition in which the patient arrived, the patient was immediately assessed by myself and the nurse, and cardiac monitoring initiated due to the potential for rapid decompensation of the patient's clinical condition. During the course of the patients stay, I spent a considerable amount of time at the bedside performing serial re-evaluations of the patient's hemodynamic and clinical status because of the recognized potential threat to life or limb in this condition. I then had a chance to review not only all of the available current laboratory and radiographic studies obtained today, but I also reviewed old records available to me at the time. Additionally, any ancillary information available including director teen post records were reviewed. S equential vital signs were obtained. Disposition Clinical Impression: DKA (diabetic ketoacidoses), Lactic acid acidosis, Leukocytosis, Atrial fibrillation with RVR, NSTEMI (non-ST elevated myocardial infarction), Respiratory failure, Cardiac arrest Disposition: ADMITTED IP TO THIS HOSP Condition: Critical
[2019-04-13] MEDS ORDERED: DILTIAZEM 5 MG/ML 5 ML VIAL IVP STA (22:18)
[2019-04-13] MEDS ORDERED: HEPARIN SODIUM,PORCINE 5,000 UNIT/ML 1 ML VIAL IV PRN (22:19)
[2019-04-13] MEDS ORDERED: HEPARIN SODIUM,PORCINE 5,000 UNIT/ML 1 ML VIAL IV ONE (22:19)
[2019-04-13] MEDS ORDERED: DILTIAZEM 125 MG in SODIUM CHLORIDE 0.9% 100 ML IV SCH (22:30)
[2019-04-13] MEDS ORDERED: HEPARIN SOD,PORK IN 0.45% NACL 25,000 UNIT in 0.45% NACL 1 250ML.BAG IV SCH (22:30)
[2019-04-13 22:32] LABS: Basophils # (A) 0.1 k/uL (0-0.2); Basophils % (A) 0 %; Eosinophils # (A) 0.4 k/uL (0-0.7); Eosinophils % (A) 2 %; HCT 51.2 % (34.0-46.0); HGB 16.1 gm/dL (11.4-16.0); Hypochromasia Slight; Lymphocytes # (A) 0.8 k/uL (1.0-4.8); Lymphocytes % (A) 4 %; MCH 29.9 pg (25.0-35.0); MCHC 31.5 g/dL (31.0-37.0); Mean Platelet Volume 9.8; Monocytes # (A) 0.4 k/uL (0-1.0); Monocytes % (A) 2 %; Neutrophils # (A) 19.4 k/uL (1.3-7.7); Neutrophils % (A) 92 %; Platelet Count 244 k/uL (150-450); RDW 14.1 % (11.5-15.5); WBC 21.1 k/uL (3.8-10.6)
[2019-04-13 22:35] LABS: MCV 94.8 fL (80.0-100.0)
[2019-04-13 22:52] LABS: Albumin 4.1 g/dL (3.5-5.0); Calcium 8.7 mg/dL (8.4-10.2); Potassium 5.3 mmol/L (3.5-5.1); Total Bilirubin 6.2 mg/dL (0.2-1.3); Total Protein 6.9 g/dL (6.3-8.2)
[2019-04-13 22:57] LABS: Partial Thromboplastin Time 19.1 sec (22.0-30.0)
[2019-04-13] MEDS ORDERED: INSULIN REGULAR 100 UNIT/ML VIAL IV ONE (23:06)
[2019-04-13] MEDS ORDERED: SODIUM CHLORIDE 0.9% 1,000 ML IV ONE (23:14)
[2019-04-13] MEDS ORDERED: METOPROLOL TARTRATE 50 MG TAB PO STA (23:43)
[2019-04-13] MEDS ORDERED: INSULIN REGULAR 100 UNIT in SODIUM CHLORIDE 0.9% 100 ML IV SCH (23:45)
[2019-04-13] MEDS ORDERED: MIDAZOLAM 1 MG/ML 5 ML VIAL IV STA (23:48)
[2019-04-13] MEDS ORDERED: fentaNYL (PF) 50 MCG/ML 2 ML AMP IVP STA (23:48)
[2019-04-14 00:07] LABS: Glucose,Whole Blood 592 mg/dL (75-99)
[2019-04-14] MEDS ORDERED: SODIUM CHLORIDE 0.9% 1,000 ML IV ONE (00:14)
[2019-04-14] MEDS ORDERED: NALOXONE 0.4 MG/ML 1 ML VIAL IV PRN (00:38)
[2019-04-14] MEDS ORDERED: LORazepam 2 MG/ML INJ IV STA ×2 (00:48→01:49)
[2019-04-14] MEDS: SODIUM CHLORIDE 0.9% 1,000 ML IV SCH ×3 (00:58→13:45)
[2019-04-14] MEDS: INSULIN REGULAR 100 UNIT in SODIUM CHLORIDE 0.9% 100 ML IV SCH ×3 (01:00→13:02)
[2019-04-14] MEDS ORDERED: MIDAZOLAM 1 MG/ML 5 ML VIAL IV STA ×2 (01:13→02:04)
[2019-04-14] MEDS ORDERED: SUCCINYLCHOLINE CHLORIDE VIAL 200 MG/10 ML VIAL IV STA (01:13)
[2019-04-14 01:15] LABS: VBG PH 7.1 (7.31-7.41)
[2019-04-14 01:23] LABS: Glucose,Whole Blood 551 mg/dL (75-99)
[2019-04-14] MEDS ORDERED: AMIODARONE 360 MG in DEXTROSE 5% IN WATER 200 ML IV ONE ×2 (01:41)
[2019-04-14] MEDS ORDERED: DEXTROSE 5% IN WATER 100 ML with AMIODARONE 150 MG IV ONE (01:41)
[2019-04-14] MEDS ORDERED: AMIODARONE 300 MG in DEXTROSE 5% IN WATER 250 ML IV SCH ×2 (01:45)
[2019-04-14 01:48] LABS: ABG Base Excess -18.1 mmol/L; ABG HCO3 12 mmol/L (21-25); ABG Oxygen Saturation 95.5 % (94-97); ABG PCO2 41 mmHg (35-45); ABG PO2 107 mmHg (83-108); ABG TCO2 13 mmol/L (19-24); Allen Test Performed? Yes
[2019-04-14 01:50] LABS: ABG PH 7.08 (7.35-7.45)
[2019-04-14] MEDS ORDERED: MIDAZOLAM HCL 50 MG in SODIUM CHLORIDE 0.9% 40 ML IV SCH (02:00)
--- NOTE | 2019-04-14 02:09 | XR ---
EXAM: XR Chest, 1 View CLINICAL HISTORY: ITS.REASON XR Reason: Central line TECHNIQUE: Frontal view of the chest. COMPARISON: 08/08/2011. FINDINGS: Lungs: Unremarkable. The lungs are clear. Pleural space: Unremarkable. No pneumothorax. Heart: Moderate cardiomegaly. Mediastinum: Unremarkable. Bones/joints: Unremarkable. Tubes, lines and devices: Right-sided central venous catheter with tip projecting over the right atrium. No evidence of pneumothorax. Other findings: Poor inspiration. IMPRESSION: Right-sided central venous catheter with tip projecting over the right atrium. No evidence of pneumothorax.
[2019-04-14 02:10] LABS: Glucose,Whole Blood 543 mg/dL (75-99)
[2019-04-14] MEDS: fentaNYL (PF) 1,000 MCG in SODIUM CHLORIDE 0.9% 80 ML IV SCH ×2 (02:17→05:38)
--- NOTE | 2019-04-14 02:32 | XR ---
EXAM: XR Chest, 1 View CLINICAL HISTORY: ITS.REASON XR Reason: pain TECHNIQUE: Frontal view of the chest. COMPARISON: 04/14/19 at 00 43. FINDINGS: Interval placement of endotracheal tube with the tip at the kennedy/proximal right mainstem bronchus. Feeding tube is looped in the stomach, the tip is obscured in the right abdomen. Low lung volumes with patchy bilateral lung opacities. Additional findings similar to recent prior. IMPRESSION: 1. Endotracheal tube with the tip at the kennedy/proximal right mainstem bronchus. Recommend retraction. 2. Feeding tube is looped in the stomach, the tip is obscured in the right abdomen. <MYCVCSECTION> [employer] 04/14/19 02:42 Verify Receipt Verified receipt with ER clerk [place], given to Dr. Wright on 04/14 02:42 (-04:00)
[2019-04-14 03:10] LABS: Glucose,Whole Blood 436 mg/dL (75-99)
--- NOTE | 2019-04-14 03:24 | XR ---
EXAM: XR Chest, 1 View CLINICAL HISTORY: ITS.REASON XR Reason: intubation TECHNIQUE: Frontal view of the chest. COMPARISON: Chest x-ray earlier today. FINDINGS: Lungs: Limited pulmonary evaluation due to poor inspiration and patient positioning. Pleural space: Unremarkable. No obvious pneumothorax. Heart: Unremarkable. Limited evaluation. Mediastinum: Limited evaluation. Bones/joints: Unremarkable. Tubes, lines and devices: Partially imaged gastric tube. The tip is favored to terminate below the diaphragm but is not well evaluated on this exam. The endotracheal tube tip is difficult to visualize on this exam and appears to terminate in the region of the kennedy, directed towards the right. IMPRESSION: 1. Partially imaged gastric tube. The tip is favored to terminate below the diaphragm but is not well evaluated on this exam. Further evaluation with abdominal radiograph is suggested. 2. The endotracheal tube tip is difficult to visualize on this exam and appears to terminate in the region of the kennedy, directed towards the right. The appearance is similar to the prior exam. Recommend reimaging for further evaluation. <MYCVCSECTION> [employer] 04/14/19 03:33 Verify Receipt Verified receipt with SHUN Kaplan, given to Dr. Wright on 04/14 03:33 (-04:00)
[2019-04-14 03:25] LABS: HCT 43.7 % (34.0-46.0); HGB 13.9 gm/dL (11.4-16.0); Hypochromasia Marked; MCH 31.4 pg (25.0-35.0); MCHC 31.9 g/dL (31.0-37.0); MCV 98.6 fL (80.0-100.0); Mean Platelet Volume 10.2; Platelet Count 215 k/uL (150-450); RBC 4.43 m/uL (3.80-5.40); RDW 14.8 % (11.5-15.5); WBC 31.2 k/uL (3.8-10.6)
[2019-04-14 03:36] LABS: VBG PH 6.93 (7.31-7.41)
[2019-04-14 03:37] LABS: Calcium 8.7 mg/dL (8.4-10.2); Magnesium 1.9 mg/dL (1.6-2.3); Phosphorus 8.3 mg/dL (2.5-4.5); Total Protein 7.1 g/dL (6.3-8.2)
[2019-04-14 03:41] LABS: Potassium 4.1 mmol/L (3.5-5.1)
[2019-04-14 03:42] LABS: Total Bilirubin 6.6 mg/dL (0.2-1.3)
[2019-04-14 04:05] LABS: Band Neutrophils % 23 %; Lymphocytes # (M) 4.68 k/uL (1.0-4.8); Monocytes # (M) 1.56 k/uL (0-1.0); Neutrophils % (M) 57 %; Nucleated Red Blood Cells 0 /100 WBC (0-0); Total Cells Counted 100
[2019-04-14] MEDS ORDERED: CALCIUM CHLORIDE 1 GM/10 ML VIAL ONE (04:16)
[2019-04-14] MEDS ORDERED: EPINEPHrine 10 ML SYRINGE (0.1 MG/ML) ONE ×2 (04:16)
[2019-04-14] MEDS ORDERED: SODIUM CHLORIDE 0.9% 1,000 ML BAG ONE (04:16)
[2019-04-14] MEDS ORDERED: SODIUM BICARB 8.4% 50 ML SYR (1 MEQ/ML) ONE ×2 (04:16)
[2019-04-14 04:28] LABS: Glucose,Whole Blood 493 mg/dL (75-99)
[2019-04-14 05:04] LABS: ABG Base Excess -19.2 mmol/L; ABG HCO3 13 mmol/L (21-25); ABG Oxygen Saturation 95.5 % (94-97); ABG PCO2 66 mmHg (35-45); ABG PO2 117 mmHg (83-108); ABG TCO2 15 mmol/L (19-24)
[2019-04-14 05:06] LABS: ABG PH 6.92 (7.35-7.45)
[2019-04-14 05:17] LABS: Band Neutrophils % 11 %; Lymphocytes # (M) 1.69 k/uL (1.0-4.8); Monocytes # (M) 0.42 k/uL (0-1.0); Neutrophils % (M) 79 %; Nucleated Red Blood Cells 0 /100 WBC (0-0); Total Cells Counted 100
[2019-04-14 05:18] LABS: Large Platelets Present
--- NOTE | 2019-04-14 05:27 | XR ---
EXAM: XR Chest, 1 View CLINICAL HISTORY: ITS.REASON XR Reason: tube placement/lung overview post code TECHNIQUE: Frontal view of the chest. COMPARISON: Chest x-ray performed earlier tonight. FINDINGS: Lungs: Moderate patchy and reticular opacities throughout both lungs are nonspecific. These are better appreciated on the current exam. Pleural space: Unremarkable. No pneumothorax. Heart: Moderate cardiomegaly. Mediastinum: Unremarkable. Bones/joints: Unremarkable. Tubes, lines and devices: Endotracheal tube tip terminates 3.5 cm above the kennedy. Gastric tube terminates below the diaphragm, below the plane of this exam. Right-sided central venous catheter with tip projecting over the cavoatrial junction. No definite evidence of pneumothorax. IMPRESSION: 1. Endotracheal tube tip terminates 3.5 cm above the kennedy. 2. Moderate patchy and reticular opacities throughout both lungs are nonspecific. These are better appreciated on the current exam.
[2019-04-14] MEDS: DEXTROSE 5% IN WATER 1,000 ML with SODIUM BICARB (1 MEQ/ML) 150 ML IV SCH ×4 (05:34→17:32)
[2019-04-14] MEDS: NOREPINEPHRINE 32 MG in SODIUM CHLORIDE 0.9% 218 ML IV SCH ×3 (05:35→13:02)
[2019-04-14] MEDS: PIPERACILLIN-TAZOBACTAM 3.375 GM in SODIUM CHLORIDE 0.9% 100 ML IVPB SCH ×2 (05:52→13:40)
[2019-04-14] MEDS ORDERED: SODIUM CHLORIDE 0.9% 150 ML with VASOPRESSIN 60 UNIT IV SCH ×2 (06:15)
--- NOTE | 2019-04-14 06:54 | CONS ---
CONSULTATION PULMONARY/CRITICAL CARE CONSULTATION DATE OF CONSULTATION: April 14, 2019 This is a 43-year-old female with a past medical history of atrial fibrillation, asthma, type 1 diabetes, obesity, hypertension, anxiety and depression, and chronic tobacco use, who presented to the emergency room with atrial fibrillation and RVR. The patient apparently signed out AGAINST MEDICAL ADVICE. She came back to the emergency room at about 10:00 at nighttime. Again she had atrial fibrillation with RVR. At this time, her heart rate was greater than 180 beats per minute. It was not as fast earlier in the day when she initially presented. Anyway, as the story goes according to Dr. Wright, the patient was treated for the atrial fibrillation with RVR with Cardizem and apparently the patient then developed poor mental status, lethargy, somnolence and the decision was made to intubate the patient. She was intubated in the emergency room. Subsequent to that, the patient apparently had cardiac arrest and was resuscitated after about 17 minutes. She was transferred up to the ICU. A central line was placed in the ER. One of the nurse restrictive preparation operator was kind enough to place an art line in the left radial artery prior to my arrival in the ICU this morning. Since she was here in the ICU, she apparently has coded twice. She bradys down and they start resuscitation and she was able to be resuscitated both times. Currently, she is on the volume assist- control mode rate of 18, tidal volume 400, FiO2 of 100%, PEEP of 8. Her blood gases that were done much earlier in the morning maybe before 2:00 in the morning were pO2 of 107, pCO2 of 41, and pH 7.08. It is consistent with severe metabolic acidosis. The patient has another blood gas pending. Currently, she is on norepinephrine at 90 mcg/minute. She was on epinephrine drip, but that has been weaned off. She is on insulin 16 units an hour saline at 150 mL an hour and she is on a bicarb drip, 3 amps and D5W at 150 mL an hour. She apparently received 2.5 L in the emergency room and she has received 1.5 L of fluid here in the ICU during the codes. MEDICATIONS: Her home medications include ranitidine, Lotrel, metformin, albuterol inhaler, Lipitor, Cymbalta, Tambocor, insulin, Ativan, Claritin, metoprolol, Coumadin, aspirin, Cymbalta, and tramadol. ALLERGIES: Allergies are denied. MEDICAL HISTORY: Her medical history as mentioned above includes atrial fibrillation, chronic bronchial asthma, diabetes mellitus, hypertension, obesity, herpes, diverticulitis, chronic back pain, anxiety/depression and chronic tobacco dependence. SURGICAL HISTORY: Surgical history includes among other things left knee surgery. SOCIAL HISTORY: Social history is apparently negative for alcohol or illicit drug use, but positive for tobacco use. FAMILY HISTORY: The family history is not known and cannot be obtained at this time. No family at bedside. REVIEW OF SYSTEMS: Cannot be obtained. She is currently sedated and intubated. The patient initially presented to the ER according to the ER dominick with abdominal pain, shortness of breath, neck and hip pain. PHYSICAL EXAMINATION: VITAL SIGNS: Current vital signs include a temperature 98.9, heart rate of 140, respiratory rate of 22, blood pressure of 108/49, mean of 68 and a saturation of 96%. GENERAL: She appears in no acute distress. She is currently on the ventilator. There is an orally placed endotracheal tube and NG tube. HEENT: Examination is grossly unremarkable. NECK: Supple. No neck vein distention. No adenopathy or thyromegaly. CARDIOVASCULAR: Examination reveals tachycardia. Heart rate about 130 or 140 beats per minute. It seems most mostly regular. LUNGS: Reveal coarse rhonchi. Breath sounds are equal. ABDOMEN: Obese. No bowel sounds. EXTREMITIES: Are intact. They are warm. Minimal edema. SKIN: Without rash. NEUROLOGIC: Examination cannot be adequately assessed. Most recent blood gases on these current settings include a pO2 of 117, pCO2 of 66 and a pH of 6.919. LABORATORY DATA: Laboratory data includes a white count 31.2, hemoglobin 13.9, hematocrit 43.7, platelet count 215,000. Sodium 137, potassium 4.1, chloride 99, CO2 of 12. Anion gap is 26. BUN and creatinine were 32 and 1.72. Lactic acid 17.1. Troponin is 1.150. The rest of the labs are noted. The most recent chest x-ray shows cardiomegaly, a right internal jugular triple- lumen catheter, a properly placed endotracheal tube and diffuse patchy infiltrates which may be consistent with fluid overload. EKG shows atrial fibrillation with a ventricular response rate of 200. MEDICATIONS: Current medications are reviewed. They include the bicarb IV as I mentioned earlier, norepinephrine at 90 mcg/minute, insulin at 16 units an hour, a 0.9 at 150 an hour, the 3 amps of bicarb and D5W at 150 an hour, Zosyn 3.375 grams q.8 hours, Narcan, heparin drip. ASSESSMENT: 1. Acute cardiopulmonary arrest with hypoxemic respiratory failure requiring intubation and mechanical ventilation. 2. Atrial fibrillation with rapid ventricular response. 3. Rule out acute myocardial ischemia. 4. Cardiopulmonary arrest x3 with cardiopulmonary resuscitation and return of spontaneous circulation. 5. Profound metabolic acidosis with lactic acidemia. 6. History of chronic atrial fibrillation. 7. History of asthma. 8. History of type 1 diabetes mellitus. 9. History of hypertension. 10.Morbid obesity. 11.History of anxiety/depression. 12.History of tobacco use. 13.Anion gap metabolic acidosis secondary to lactic acidemia. PLAN: An art line was placed by the SEAFOOD PREPARER prior to my arrival. The patient's most recent blood gases show a profound metabolic and respiratory acidosis. We will increase the rate to try to improve the respiratory component of her acidosis. We will give her some additional bicarbonate. The patient's epinephrine has been weaned off. She is on Levophed primarily for blood pressure support. We will make sure she has something for sedation. We will start her on IV heparin. She has got a central line already. We will get her on some updrafts. Overall prognosis remains very poor. We will continue to follow. MMDIVYAL / DIEGON: [id number] / MTDD
[2019-04-14 07:09] LABS: Glucose,Whole Blood 320 mg/dL (75-99)
[2019-04-14] MEDS: IPRATROPIUM-ALBUTEROL 3 ML NEB INHALATION SCH ×3 (07:27→15:31)
[2019-04-14 07:46] LABS: ABG Base Excess -12.5 mmol/L; ABG HCO3 17 mmol/L (21-25); ABG Oxygen Saturation 86.1 % (94-97); ABG PCO2 51 mmHg (35-45); ABG TCO2 18 mmol/L (19-24); Allen Test Performed? Yes
[2019-04-14 07:49] LABS: ABG PH 7.13 (7.35-7.45)
[2019-04-14] MEDS ORDERED: SODIUM CHLORIDE 0.9% 2,000 ML IV ONE (08:02)
[2019-04-14 08:03] LABS: Glucose,Whole Blood 271 mg/dL (75-99)
--- NOTE | 2019-04-14 08:03 | P.PN ---
Progress Note - Text Progress Note Date: 04/14/19 I saw and evaluated this patient at 7:30 AM this morning after my partner has already seen the patient in the support technician hours. This evaluation was done on 04/14/2019. The events occurring prior to my arrival were all noted. The patient is currently intubated on a mechanical ventilator. The patient is completely unresponsive. In fact there is no neurologic response from this patient. She is deeply comatose and possibly brain that at this point in time based on my neurologic exam. Pupils are widely dilated. There is no corneal reflex. There is no gag reflex. There is no breathing reflex. Patient has doll's eyes and the patient does not respond to any stimulation. The patient had a temperature of 97.8. The patient is still massively hypotensive on levo fed infusion running at 120 mics in addition to vasopressin. Pulses are not palpable in lower extremities. Extremities are cold and mottled at this point in time. No urine output. Bicarb infusion is running at 150 mL an hour. The patient's insulin drip is running at 16 units an hour. The patient is on a mechanical ventilator on assist control mode. The most recent blood gases were noted in the patient was placed on an assist-control mode at the rate of 32 with a tidal volume of 375 and FiO2 of 100% and a PEEP was brought up to 10. Most recent blood gases showed a pH of 7.13 with a pCO2 of 51 and pO2 of 59. Chest x-ray shows cardiomegaly and by the pulmonary infiltrates and there is moderate part she had reticular opacities bilaterally. The patient is currently on empiric antibiotic coverage with IV Zosyn. The patient remains in atrial fibrillation. Rate is between 120 and 1:30 beats per minute. The patient is currently off the Cardizem drip. Family is at the bedside Assessment 1 cardiopulmonary arrest 3 with prolonged downtime of 15 minutes and then 10 minutes and then another 10 minutes. The patient shows signs of anoxic encephalopathy/brain that 2 neurologic brain based on her neurologic exam that was done today 3 acute DKA 4 shock with multisystem organ failure 5 chronic atrial fibrillation, post-cardioversion 6 chronic bronchial asthma 7 severe metabolic acidosis a combination of DKA and lactic acidosis. Most recent lactic acid level is at 13 8 morbid obesity 9 hypertension 10 hyperlipidemia Plan Continue current treatment. Prognosis poor. Obtain echocardiogram status. Obtain a neurologic evaluation by neurology. Unfortunately on examination the patient has no neurologic reflexes or brainstem reflexes. Prognosis poor. We'll give another 2 L of IV fluids immediately and obtain echocardiogram. Continue the insulin drip. Continue the pressors. We'll follow
[2019-04-14 09:43] LABS: Glucose,Whole Blood 234 mg/dL (75-99)
[2019-04-14 10:13] LABS: Glucose,Whole Blood 229 mg/dL (75-99)
[2019-04-14 10:19] VITALS: BMI 64.5
--- NOTE | 2019-04-14 10:57 | CONS ---
CONSULTATION This patient's emergency room records and electronic medical records reviewed. The patient's condition also discussed with Dr. Bhagat. This patient initially came with diabetic ketoacidosis the day before in emergency room. She subsequently signed out Against Medical Advice and she came back in acute shock. The patient was intubated, a central line was started. Patient was initially in atrial fibrillation. Subsequently converted to the normal sinus rhythm. The patient subsequently had a prolonged cardiopulmonary arrest x3 and she had intermittent episodes of bradycardia. Patient has a history of atrial fibrillation. The patient currently is intubated on mechanical ventilator and completely unresponsive. There is no neurological response from the patient and she is deeply comatose. Patient's laboratory tests were reviewed currently. PHYSICAL EXAMINATION: Physical examination at present reveals a 43-year-old female who is comatose. Pupils are dilated and not reacting to the light. Head, ENT and neck examination is unremarkable. HEART: S1 and S2 normal. Lungs reveal bilateral diminished air entry. Abdomen is soft. EXTREMITIES: Peripheral pulsations are not felt. Patient's urine output is zero. Arterial blood gases shows pH of 7.13, pCO2 is 51, pO2 is 59. The patient's creatinine is 1.72. Urine output is zero. FINAL IMPRESSION: This patient came with acute diabetic ketoacidosis and shock. The patient is status post cardiopulmonary arrest x3. The patient's echocardiogram reveals severely impaired left ventricular systolic function, possibly secondary to underlying sepsis and infection on cardiopulmonary arrest. EKG does not show any evidence of acute ST-segment elevation myocardial infarction. Mild elevation in the troponin is due to patient's shock and recurrent cardiac arrest. Continue supportive treatment. Patient's prognosis is very poor. MMODL / IJN: [id number] /
--- NOTE | 2019-04-14 11:01 | ECHOF ---
Referral Reason:post code MEASUREMENTS -------- HEIGHT: 160.0 cm WEIGHT: 165.1 kg BP: 82/68 RVIDd: 2.9 cm (< 3.3) IVSd: 1.6 cm (0.6 - 1.1) LVIDd: 4.4 cm (3.9 - 5.3) LVPWd: 1.4 cm (0.6 - 1.1) IVSs: 2.0 cm LVIDs: 3.7 cm LVPWs: 1.9 cm LA Diam: 3.5 cm (2.7 - 3.8) LAESV Index (A-L): 23.79 ml/m Ao Diam: 3.3 cm (2.0 - 3.7) AV Cusp: 2.2 cm (1.5 - 2.6) MV EXCURSION: 23.254 mm (> 18.000) MV EF SLOPE: 111 mm/s (70 - 150) EPSS: 1.0 cm MV E Ronenll: 0.62 m/s MV DecT: 291 ms MV A Ronnell: 0.46 m/s MV E/A Ratio: 1.35 FINDINGS -------- Sinus rhythm. This was a technically difficult study with suboptimal views. The left ventricular size is normal. There is moderate concentric left ventricular hypertrophy. O verall left ventricular systolic function is severely impaired with, an EF between 25 - 30 %. The right ventricle is normal in size. Normal LA size by volume 22+/-6 ml/m2. The right atrium is normal in size. 4 ml of Lumason was utilized for enhancement of images. The aortic valve is trileaflet and appears structurally normal. The mitral valve leaflets are mildly thickened. The tricuspid valve appears structurally normal. Trace/mild (physiologic) pulmonic regurgitation. The aortic root size is normal. IVC Not well visulized. There is no pericardial effusion. CONCLUSIONS -------- 1. Sinus rhythm. 2. This was a technically difficult study with suboptimal views. 3. The left ventricular size is normal. 4. There is moderate concentric left ventricular hypertrophy. 5. Overall left ventricular systolic function is severely impaired with, an EF between 25 - 30 %. 6. The right ventricle is normal in size. 7. Normal LA size by volume 22+/-6 ml/m2. 8. The right atrium is normal in size. 9. 4 ml of Lumason was utilized for enhancement of images. 10. The aortic valve is trileaflet and appears structurally normal. 11. The mitral valve leaflets are mildly thickened. 12. The tricuspid valve appears structurally normal. 13. Trace/mild (physiologic) pulmonic regurgitation. 14. The aortic root size is normal. 15. IVC Not well visulized. 16. There is no pericardial effusion. COMPUTER ASSEMBLER: Teresa Phillips RDCS
[2019-04-14 11:29] LABS: Glucose,Whole Blood 228 mg/dL (75-99)
[2019-04-14] MEDS ORDERED: D5-0.45% NACL WITH KCL 20MEQ/L 1,000 ML IV SCH (12:00)
[2019-04-14 12:06] LABS: ABG Base Excess -8.8 mmol/L; ABG HCO3 20 mmol/L (21-25); ABG Oxygen Saturation 73.2 % (94-97); ABG PCO2 62 mmHg (35-45); ABG TCO2 22 mmol/L (19-24); Allen Test Performed? Yes
[2019-04-14 12:09] LABS: ABG PH 7.13 (7.35-7.45); ABG PO2 39 mmHg (83-108)
[2019-04-14 12:10] LABS: Glucose,Whole Blood 218 mg/dL (75-99)
[2019-04-14 12:28] VITALS: RESP 28
--- NOTE | 2019-04-14 12:51 | P.HPIM ---
History of Present Illness H&P Date: 04/14/19 Chief Complaint: Abdominal pain HISTORY AND PHYSICAL AND DISCHARGE SUMMARY: This is a 43-year-old female patient of Dr. Burrows with past medical history of diabetes mellitus type 2, hypertension, hyperlipidemia, atrial fibrillation, asthma mild intermittent, recurrent depression. Patient initially presented to the hospital on March 13 was found to be in atrial fibrillation with RVR and signed out AGAINST MEDICAL ADVICE. She returned the following day again she was in atrial fibrillation with RVR. Apparently presented with abdominal pain. Her heart rate was up to the 200s. Patient was started on Cardizem drip but she became lethargic, somnolent and they intubated the patient will she was in the emergency center. She subsequently had a cardiac arrest and was resuscitated after 17 minutes. Rhythm apparently was PE A. She was transferred into the intensive care unit and she has coded twice. Patient becomes bradycardic and then PEA. Subsequently she was in atrial fibrillation. Patient was cardioverted 3 and she has been in a sinus tachycardia since. She is intubated and on mechanical ventilation with FiO2 of 100% and PEEP of 10. She is status post 7 L of IV fluid, currently on vasopressin and norepinephrine. She is on a bicarb drip at 250 mL per hour. She has on the DKA protocol with insulin drip. Patient was on a heparin drip which was up slightly discontinued as there was blood in her NG tube. Patient has had no urine output. Pupils are fixed at 6 mm, no corneal or gag reflexes. There is a consult in place with neurology and EEG has been ordered for today. Temperatures are now declining at 96. Echocardiogram reveals EF 25-30%, moderate concentric left hypertrophy. EEG was markedly abnormal indicative of severe diffuse cerebral dysfunction as seen in anoxic or hypoxic encephalopathy. Patient on April 14. Please see nursing documentation for details. Review of Systems ROS unobtainable: due to mental status Past Medical History Past Medical History: Atrial Fibrillation, Asthma, Diabetes Mellitus, Hypertension Additional Past Medical History / Comment(s): Herpes type 2, divirticulitis chronic back pain History of Any Multi-Drug Resistant Organisms: None Reported Past Surgical History: Orthopedic Surgery Additional Past Surgical History / Comment(s): left knee surgery Past Psychological History: Anxiety, Depression Smoking Status: Former smoker Past Alcohol Use History: None Reported Additional Past Alcohol Use History / Comment(s): Patient was a smoker on and off for a number of years and also secondhand smoke exposure. No marijuana, illicit drug use or alcohol use. Patient lives at home with her mother and is her mother's caregiver. Past Drug Use History: None Reported - Past Family History Mother Additional Family Medical History / Comment(s): Mother is alive with history of atrial fibrillation and asthma. Father Additional Family Medical History / Comment(s): Father in his 60s. Patient did not know anything about her father's history. Patient does not have any brothers, sisters, children. Medications and Allergies Home Medications Medication Instructions Recorded Confirmed Type Ranitidine HCl [Zantac] 150 mg PO BID 04/07/14 04/13/19 History amLODIPine BESYLATE/BENAZEPRIL 1 cap PO DAILY 04/07/14 04/13/19 History [Lotrel 5-10 mg Capsule] metFORMIN HCL 1,000 mg PO BID 04/07/14 04/13/19 History Albuterol Inhaler [Ventolin Hfa 1 - 2 puff INHALATION RT-Q6H PRN 12/03/18 04/13/19 History Inhaler] Atorvastatin [Lipitor] 20 mg PO HS 12/03/18 04/13/19 History DULoxetine HCL [Cymbalta] 60 mg PO DAILY 12/03/18 04/13/19 History Flecainide [Tambocor] 50 mg PO Q12HR 12/03/18 04/13/19 History Insulin Glargine,Hum.rec.anlog 46 unit SQ PC-SUPPER 12/03/18 04/13/19 History [Basaglar Kwikpen U-100] Insulin Regular, Human [humulin R 25 unit SQ BID 12/03/18 04/13/19 History U-500 Kwikpen] LORazepam [Ativan] 2 mg PO TID PRN 12/03/18 04/13/19 History Loratadine [Claritin] 10 mg PO DAILY 12/03/18 04/13/19 History Metoprolol Succinate [Toprol Xl] 100 mg PO DAILY 12/03/18 04/13/19 History Warfarin [Coumadin] 2.5 mg PO DAILY 12/03/18 04/13/19 History Stmqsvz-Puiq-Oqss [id number] 1 tab PO Q4HR PRN 04/13/19 04/13/19 History [Excedrin] DULoxetine HCL [Cymbalta] 30 mg PO DAILY 04/13/19 04/13/19 History traMADol HCL [Ultram] 50 mg PO TID PRN 04/13/19 04/13/19 History Allergies Allergy/AdvReac Type Severity Reaction Status Date / Time No Known Allergies Allergy Verified 04/13/19 22:02 Physical Exam Vitals: Vital Signs Temp Pulse Resp BP Pulse Ox 04/14/19 09:00 114 H 19 104/63 87 L 04/14/19 08:45 114 H 22 99/34 74 L 04/14/19 08:30 118 H 12 70/37 73 L 04/14/19 08:15 97.6 F 115 H 12 66/43 72 L 04/14/19 08:00 118 H 6 L 114/63 04/14/19 07:52 117 H 04/14/19 07:45 117 H 21 125/85 82 L 04/14/19 07:30 116 H 4 L 87 L 04/14/19 07:15 109 H 7 L 90 L 04/14/19 07:00 108 H 20 90 L 04/14/19 06:30 116 H 26 H 04/14/19 06:00 156 H 20 04/14/19 05:30 152 H 26 H 04/14/19 05:00 112 H 26 H 83/65 04/14/19 04:30 113 H 25 H 173/79 04/14/19 04:00 19 L 24 97/80 04/14/19 03:46 71 19 04/14/19 03:13 98.9 F 116 H 25 H 108/49 96 04/14/19 02:57 112 H 20 126/87 94 L 04/14/19 02:01 117 H 25 H 139/102 98 04/14/19 01:44 99.3 F 114 H 20 86/48 98 04/14/19 01:21 105 H 18 111/59 99 04/14/19 01:08 141 H 30 H 129/93 97 04/14/19 00:53 168 H 32 H 74/36 96 04/14/19 00:09 163 H 38 H 106/87 97 04/14/19 00:00 24 88/60 04/13/19 23:30 181 H 31 H 99/49 95 04/13/19 23:29 170 H 30 H 91/75 95 04/13/19 23:15 150 H 35 H 99/49 93 L 04/13/19 23:05 177 H 35 H 81/70 100 04/13/19 23:00 174 H 42 H 72/53 93 L 04/13/19 22:30 146 H 37 H 96/47 92 L 04/13/19 22:18 179 H 21 04/13/19 22:17 200 H 04/13/19 21:31 97.9 F 92 20 105/78 95 Intake and Output 04/13/19 04/14/19 04/14/19 22:59 06:59 14:59 Intake Total 5051.252 3098.528 Output Total 10 0 Balance 5041.252 3098.528 Intake: IV 5000 2700 0.9 5000 2150 Dextrose 5% in Water 1, 400 000 ml @ 250 mls/hr IV . Q4H36M FAY with Sodium Bicarb (1 Meq/ml) 150 ml Rx#:[id number] Zosyn 150 Intake, IV Titration 51.252 398.528 Amount Diltiazem 125 mg In 48.5 Sodium Chloride 0.9% 100 ml @ Per Protocol IV .Q0M [facility] Rx#:[id number] Heparin Sod,Pork in 0.45% 101.167 NaCl 25,000 unit In 0.45 % NaCl 1 250ml.bag @ 6.06 UNITS/KG/HR 10.006 mls/ hr IV .Q24H [facility] Rx#: [id number] Insulin Regular 100 unit 121.289 In Sodium Chloride 0.9% 100 ml @ 0.1 UNITS/KG/HR 16.676 mls/hr IV .Q6H4M [facility] Rx#:[id number] Norepinephrine 32 mg In 176.072 Sodium Chloride 0.9% 218 ml @ 0.05 MCG/KG/MIN 3.87 mls/hr IV .Q24H [facility] Rx#: [id number] fentaNYL (PF) 1,000 mcg 2.752 In Sodium Chloride 0.9% 80 ml @ 2 MCG/KG/HR 33. 022 mls/hr IV .Q3H2M [facility] Rx#:[id number] Output: Urine 10 0 Other: Voiding Method Indwelling Catheter Weight 165.108 kg ABP, PAP, CO, CI - Last 8 Hours Arterial Blood Pressure 81/68 Arterial Blood Pressure 66/52 Arterial Blood Pressure 57/47 Arterial Blood Pressure 59/49 Arterial Blood Pressure 67/55 Arterial Blood Pressure 72/61 Arterial Blood Pressure 81/70 Arterial Blood Pressure 92/76 Arterial Blood Pressure 92/73 Arterial Blood Pressure 71/61 Arterial Blood Pressure 75/58 Arterial Blood Pressure 84/61 Gen: This is a morbidly obese 43-year-old female. Patient is in the ICU bed and appears to be comfortable. No acute distress noted. HEENT: Head is atraumatic, normocephalic. Pupils 6 mm and unreactive. Sclerae is anicteric. The patient is intubated and on mechanical ventilation. Oral gastric tube in place. NECK: Supple. No JVD. No lymphadenopathy. No thyromegaly. LUNGS: Clear to auscultation. No wheezes or rhonchi. No intercostal retractions. HEART: Regular rate and rhythm. No murmur. ABDOMEN: Soft. No masses. EXTREMITIES: No pedal edema. No calf tenderness. Capillary refill greater than 3 seconds. Dorsalis pedis is palpable bilaterally. NEUROLOGICAL: Patient is awake, alert and oriented x3. Cranial nerves 2 through 12 are grossly intact. Results CBC & Chem 7: 04/14/19 15:03 04/14/19 03:05 Labs: Abnormal Lab Results - Last 24 Hours (Table) 04/13/19 04/13/19 04/13/19 Range/Units 22:24 22:24 22:24 WBC 21.1 H (3.8-10.6) k/uL Hgb 16.1 H (11.4-16.0) gm/dL Hct 51.2 H (34.0-46.0) % Neutrophils # 19.4 H (1.3-7.7) k/uL Neutrophils # (Manual) 18.90 H (1.3-7.7) k/uL Lymphocytes # 0.8 L (1.0-4.8) k/uL Monocytes # (Manual) (0-1.0) k/uL APTT 19.1 L (22.0-30.0) sec ABG pH (7.35-7.45) ABG pCO2 (35-45) mmHg ABG pO2 (83-108) mmHg ABG HCO3 (21-25) mmol/L ABG Total CO2 (19-24) mmol/L ABG O2 Saturation (94-97) % VBG pH (7.31-7.41) VBG pCO2 (37-51) mmHg VBG HCO3 (24-28) mmol/L Sodium 129 L (137-145) mmol/L Potassium 5.3 H (3.5-5.1) mmol/L Chloride 90 L (98-107) mmol/L Carbon Dioxide 17 L (22-30) mmol/L BUN 30 H (7-17) mg/dL Creatinine (0.52-1.04) mg/dL Glucose 677 H* (74-99) mg/dL POC Glucose (mg/dL) (75-99) mg/dL Plasma Lactic Acid Jasper (0.7-2.0) mmol/L Phosphorus (2.5-4.5) mg/dL Total Bilirubin 6.2 H (0.2-1.3) mg/dL AST 45 H (14-36) U/L ALT (9-52) U/L Troponin I (0.000-0.034) ng/mL 04/13/19 04/14/19 04/14/19 Range/Units 22:24 00:06 00:47 WBC (3.8-10.6) k/uL Hgb (11.4-16.0) gm/dL Hct (34.0-46.0) % Neutrophils # (1.3-7.7) k/uL Neutrophils # (Manual) (1.3-7.7) k/uL Lymphocytes # (1.0-4.8) k/uL Monocytes # (Manual) (0-1.0) k/uL APTT (22.0-30.0) sec ABG pH (7.35-7.45) ABG pCO2 (35-45) mmHg ABG pO2 (83-108) mmHg ABG HCO3 (21-25) mmol/L ABG Total CO2 (19-24) mmol/L ABG O2 Saturation (94-97) % VBG pH (7.31-7.41) VBG pCO2 (37-51) mmHg VBG HCO3 (24-28) mmol/L Sodium (137-145) mmol/L Potassium (3.5-5.1) mmol/L Chloride (98-107) mmol/L Carbon Dioxide (22-30) mmol/L BUN (7-17) mg/dL Creatinine (0.52-1.04) mg/dL Glucose (74-99) mg/dL POC Glucose (mg/dL) 592 H (75-99) mg/dL Plasma Lactic Acid Jasper 8.1 H* (0.7-2.0) mmol/L Phosphorus (2.5-4.5) mg/dL Total Bilirubin (0.2-1.3) mg/dL AST (14-36) U/L ALT (9-52) U/L Troponin I 0.452 H* (0.000-0.034) ng/mL 04/14/19 04/14/19 04/14/19 Range/Units 01:03 01:07 01:40 WBC (3.8-10.6) k/uL Hgb (11.4-16.0) gm/dL Hct (34.0-46.0) % Neutrophils # (1.3-7.7) k/uL Neutrophils # (Manual) (1.3-7.7) k/uL Lymphocytes # (1.0-4.8) k/uL Monocytes # (Manual) (0-1.0) k/uL APTT (22.0-30.0) sec ABG pH 7.08 L* (7.35-7.45) ABG pCO2 (35-45) mmHg ABG pO2 (83-108) mmHg ABG HCO3 12 L (21-25) mmol/L ABG Total CO2 13 L (19-24) mmol/L ABG O2 Saturation (94-97) % VBG pH 7.10 L* (7.31-7.41) VBG pCO2 56 H (37-51) mmHg VBG HCO3 16 L (24-28) mmol/L Sodium (137-145) mmol/L Potassium (3.5-5.1) mmol/L Chloride (98-107) mmol/L Carbon Dioxide (22-30) mmol/L BUN (7-17) mg/dL Creatinine (0.52-1.04) mg/dL Glucose (74-99) mg/dL POC Glucose (mg/dL) 551 H (75-99) mg/dL Plasma Lactic Acid Jasper (0.7-2.0) mmol/L Phosphorus (2.5-4.5) mg/dL Total Bilirubin (0.2-1.3) mg/dL AST (14-36) U/L ALT (9-52) U/L Troponin I (0.000-0.034) ng/mL 04/14/19 04/14/19 04/14/19 Range/Units 02:08 03:05 03:05 WBC (3.8-10.6) k/uL Hgb (11.4-16.0) gm/dL Hct (34.0-46.0) % Neutrophils # (1.3-7.7) k/uL Neutrophils # (Manual) (1.3-7.7) k/uL Lymphocytes # (1.0-4.8) k/uL Monocytes # (Manual) (0-1.0) k/uL APTT (22.0-30.0) sec ABG pH (7.35-7.45) ABG pCO2 (35-45) mmHg ABG pO2 (83-108) mmHg ABG HCO3 (21-25) mmol/L ABG Total CO2 (19-24) mmol/L ABG O2 Saturation (94-97) % VBG pH 6.93 L* (7.31-7.41) VBG pCO2 67 H (37-51) mmHg VBG HCO3 13 L (24-28) mmol/L Sodium (137-145) mmol/L Potassium (3.5-5.1) mmol/L Chloride (98-107) mmol/L Carbon Dioxide (22-30) mmol/L BUN (7-17) mg/dL Creatinine (0.52-1.04) mg/dL Glucose (74-99) mg/dL POC Glucose (mg/dL) 543 H (75-99) mg/dL Plasma Lactic Acid Jasepr (0.7-2.0) mmol/L Phosphorus (2.5-4.5) mg/dL Total Bilirubin (0.2-1.3) mg/dL AST (14-36) U/L ALT (9-52) U/L Troponin I 1.150 H* (0.000-0.034) ng/mL 04/14/19 04/14/19 04/14/19 Range/Units 03:05 03:05 03:05 WBC 31.2 H (3.8-10.6) k/uL Hgb (11.4-16.0) gm/dL Hct (34.0-46.0) % Neutrophils # (1.3-7.7) k/uL Neutrophils # (Manual) 24.90 H (1.3-7.7) k/uL Lymphocytes # (1.0-4.8) k/uL Monocytes # (Manual) 1.56 H (0-1.0) k/uL APTT (22.0-30.0) sec ABG pH (7.35-7.45) ABG pCO2 (35-45) mmHg ABG pO2 (83-108) mmHg ABG HCO3 (21-25) mmol/L ABG Total CO2 (19-24) mmol/L ABG O2 Saturation (94-97) % VBG pH (7.31-7.41) VBG pCO2 (37-51) mmHg VBG HCO3 (24-28) mmol/L Sodium (137-145) mmol/L Potassium (3.5-5.1) mmol/L Chloride (98-107) mmol/L Carbon Dioxide 12 L (22-30) mmol/L BUN 32 H (7-17) mg/dL Creatinine 1.72 H (0.52-1.04) mg/dL Glucose 424 H (74-99) mg/dL POC Glucose (mg/dL) (75-99) mg/dL Plasma Lactic Acid Jasper 17.1 H* (0.7-2.0) mmol/L Phosphorus 8.3 H (2.5-4.5) mg/dL Total Bilirubin 6.6 H (0.2-1.3) mg/dL AST 338 H (14-36) U/L ALT 92 H (9-52) U/L Troponin I (0.000-0.034) ng/mL 04/14/19 04/14/19 04/14/19 Range/Units 03:05 03:08 04:14 WBC (3.8-10.6) k/uL Hgb (11.4-16.0) gm/dL Hct (34.0-46.0) % Neutrophils # (1.3-7.7) k/uL Neutrophils # (Manual) (1.3-7.7) k/uL Lymphocytes # (1.0-4.8) k/uL Monocytes # (Manual) (0-1.0) k/uL APTT 30.7 H (22.0-30.0) sec ABG pH (7.35-7.45) ABG pCO2 (35-45) mmHg ABG pO2 (83-108) mmHg ABG HCO3 (21-25) mmol/L ABG Total CO2 (19-24) mmol/L ABG O2 Saturation (94-97) % VBG pH (7.31-7.41) VBG pCO2 (37-51) mmHg VBG HCO3 (24-28) mmol/L Sodium (137-145) mmol/L Potassium (3.5-5.1) mmol/L Chloride (98-107) mmol/L Carbon Dioxide (22-30) mmol/L BUN (7-17) mg/dL Creatinine (0.52-1.04) mg/dL Glucose (74-99) mg/dL POC Glucose (mg/dL) 436 H 493 H (75-99) mg/dL Plasma Lactic Acid Jasper (0.7-2.0) mmol/L Phosphorus (2.5-4.5) mg/dL Total Bilirubin (0.2-1.3) mg/dL AST (14-36) U/L ALT (9-52) U/L Troponin I (0.000-0.034) ng/mL 04/14/19 04/14/19 04/14/19 Range/Units 05:00 07:06 07:44 WBC (3.8-10.6) k/uL Hgb (11.4-16.0) gm/dL Hct (34.0-46.0) % Neutrophils # (1.3-7.7) k/uL Neutrophils # (Manual) (1.3-7.7) k/uL Lymphocytes # (1.0-4.8) k/uL Monocytes # (Manual) (0-1.0) k/uL APTT (22.0-30.0) sec ABG pH 6.92 L* 7.13 L* (7.35-7.45) ABG pCO2 66 H 51 H (35-45) mmHg ABG pO2 117 H 59 L* (83-108) mmHg ABG HCO3 13 L 17 L (21-25) mmol/L ABG Total CO2 15 L 18 L (19-24) mmol/L ABG O2 Saturation 86.1 L (94-97) % VBG pH (7.31-7.41) VBG pCO2 (37-51) mmHg VBG HCO3 (24-28) mmol/L Sodium (137-145) mmol/L Potassium (3.5-5.1) mmol/L Chloride (98-107) mmol/L Carbon Dioxide (22-30) mmol/L BUN (7-17) mg/dL Creatinine (0.52-1.04) mg/dL Glucose (74-99) mg/dL POC Glucose (mg/dL) 320 H (75-99) mg/dL Plasma Lactic Acid Jasper (0.7-2.0) mmol/L Phosphorus (2.5-4.5) mg/dL Total Bilirubin (0.2-1.3) mg/dL AST (14-36) U/L ALT (9-52) U/L Troponin I (0.000-0.034) ng/mL 04/14/19 04/14/19 Range/Units 08:00 09:29 WBC (3.8-10.6) k/uL Hgb (11.4-16.0) gm/dL Hct (34.0-46.0) % Neutrophils # (1.3-7.7) k/uL Neutrophils # (Manual) (1.3-7.7) k/uL Lymphocytes # (1.0-4.8) k/uL Monocytes # (Manual) (0-1.0) k/uL APTT (22.0-30.0) sec ABG pH (7.35-7.45) ABG pCO2 (35-45) mmHg ABG pO2 (83-108) mmHg ABG HCO3 (21-25) mmol/L ABG Total CO2 (19-24) mmol/L ABG O2 Saturation (94-97) % VBG pH (7.31-7.41) VBG pCO2 (37-51) mmHg VBG HCO3 (24-28) mmol/L Sodium (137-145) mmol/L Potassium (3.5-5.1) mmol/L Chloride (98-107) mmol/L Carbon Dioxide (22-30) mmol/L BUN (7-17) mg/dL Creatinine (0.52-1.04) mg/dL Glucose (74-99) mg/dL POC Glucose (mg/dL) 271 H 234 H (75-99) mg/dL Plasma Lactic Acid Jasper (0.7-2.0) mmol/L Phosphorus (2.5-4.5) mg/dL Total Bilirubin (0.2-1.3) mg/dL AST (14-36) U/L ALT (9-52) U/L Troponin I (0.000-0.034) ng/mL Assessment and Plan Plan: 1. Cardiopulmonary arrest 3 with prolonged down time with signs of anoxic encephalopathy. Consult with neurology. EEG ordered. 2. Acute respiratory failure requiring intubation and mechanical ventilation. Consult with pulmonary medicine appreciated. Continue vent management. 3. Chronic atrial fibrillation presenting with RVR. 4. Metabolic acidosis and lactic acidosis secondary to cardiopulmonary arrest and DKA. Continue sodium bicarb drip. 5. Hyperosmolar hyperglycemic state with negative acetone. Continue protocol, insulin drip. 6. Shock with multisystem organ failure, possible cardiogenic shock. 7. Elevated troponin secondary to cardiopulmonary arrest. Cardiology does not suspect underlying IA. History of mild intermittent asthma. 8. Leukocytosis secondary to DKA, underlying sepsis unable to be ruled out. 9. Abdominal pain on presentation possibly due to Ileus seen on CAT scan, possibly related to DKA. Patient will be admitted to the hospital for a minimum of 2 night stay. Preliminary cause of : DKA Impression and plan of care have been directed as dictated by the signing physician. Summer العراقي nurse practitioner acting as scribe for signing physician.
[2019-04-14] MEDS ORDERED: EPINEPHrine 4 MG in DEXTROSE 5% IN WATER 250 ML IV SCH ×2 (13:00)
[2019-04-14 13:18] LABS: HGB 7.3 gm/dL (11.4-16.0)
[2019-04-14 13:20] LABS: Glucose,Whole Blood 202 mg/dL (75-99)
[2019-04-14 14:16] LABS: Glucose,Whole Blood 204 mg/dL (75-99)
--- NOTE | 2019-04-14 14:54 | P.CNNES ---
History of Present Illness Consult date: 04/14/19 Reason for Consult: Nonresponsive postcode Chief complaint: Nonresponsive postcode History of Present Illness: REFERRING PHYSICIAN: Dr. Lenora Bhagat HISTORY OF PRESENT ILLNESS: Thank you for allowing me to evaluate Ms. Reyna Coon. Ms. Coon is a 43-year-old woman with past medical history of multiple medical history, atrial fibrillation, asthma, diabetes, hypertension, herpes, diverticulitis, chronic back pain, "some kind of heart condition, electrical part doesn't work," anxiety, depression, consulted neurology for nonresponsiveness post code. Pt presented to [facility] yesterday morning where patient was noted to be in A. fib with RVR. CT of the abdomen was concerning for ileus along with patient having leukocytosis, subtherapeutic INR and elevated troponin. Patient unfortunately decided to leave AMA from the emergency room. Patient went home, slept throughout the day, last night patient was feeling worse so she came to the ER for reevaluation. The patient was reevaluated last night, patient was altered and became hypotensive. Patient was tachycardic requiring excessive IV fluids, so decision was made for patient to be intubated first. Patient later became bradycardic, was given atropine, by her rate continues to decrease at which point patient developed PEA and resuscitation was initiated. Patient coded for 17 minutes prior to ROSC. Since then, patient has had 2 additional codes, last one this morning at 5 AM that lasted for 10 minutes. Patient is on multiple drugs for her blood pressure, but her blood pressure remains in the 60s. Her ABG at one point showed pH of 6.9, this morning was 7.13 pCO2 52. The family is at bedside. Per nurse, patient's mother is also in this hospital in the emergency room after finding out about what has been going on with her daughter causing her respiratory distress. PAST MEDICAL HISTORY: Atrial fibrillation, asthma, diabetes, hypertension, herpes, diverticulitis, chronic back pain, "some kind of heart condition, electrical part doesn't work," anxiety, depression PAST SURGICAL HISTORY: Left knee surgery HOME MEDICATIONS: Metformin 1000 mg twice a day, amlodipine/benazepril 1 Daily, ranitidine 150 mg twice a day, insulin, duloxetine 60 mg daily, loratadine, Ativan when necessary, albuterol, warfarin 2.5 mg by mouth daily, metoprolol 100 mg daily, flecainide 50 mg twice a day, atorvastatin 20 mg daily, tramadol when necessary, Excedrin when necessary ALLERGIES: NO KNOWN DRUG ALLERGIES SOCIAL HISTORY: Former smoker. REVIEW OF SYSTEMS: The 14 systems are reviewed and no additional points are identified compared to the review of systems documented history and physical PHYSICAL EXAMINATION: VITAL SIGNS: Temperature 97.6 heart rate 1:15 respiratory rate 12 blood pressure 66/43 (now 104/63), O2 saturation 87% on 100% FiO2 via ventilation GEN.: Obese, intubated, not on any sedatives, patient not responding to any verbal or noxious stimuli HEENT: [NCAT, sclera with some icterus] SKIN AND EXTREMITIES: [Warm to touch, no edema] NEURO: MENTAL STATUS: Intubated but not on any sedation, not responding to any stimuli CRANIAL NERVES II THROUGH XII: Pupils are dilated and nonreactive bilaterally. Corneal reflex negative. Reflex negative. Oculocephalics are negative. MOTOR/SENSORY: No withdrawal or triple flexion on noxious stimuli REFLEXES: No reflexes. Toes are mute COORDINATION/GAIT: Deferred DIAGNOSTIC TESTING: LABORATORY: WBC 21.1 (initially, and now 31.2) hemoglobin 13.9 platelets 215 INR 1.0 PTT 11.0 glucose 493 initially (now 229) ABG: PH 7.13 pCO2 51 pO2 59 IMAGING: Chest x-ray 04/14/2019: Moderate patchy and reticular opacities throughout both lungs are nonspecific. EEG 04/14/2019: Preliminary read showing flat rhythm with some artifact ASSESSMENT/RECOMMENDATIONS: Ms. Coon is a 43-year-old woman with past medical history of multiple medical history, atrial fibrillation, asthma, diabetes, hypertension, herpes, diverticulitis, chronic back pain, "some kind of heart condition, electrical part doesn't work," anxiety, depression, consulted neurology for nonresponsiveness post code. No head imaging available at this time. Patient at this time with no brainstem reflexes along with dilated and unresponsive pupils bilaterally. There is concern about anoxic brain injury along with possible injury to the brainstem/increased ICP. Head imaging would help visualize, but patient at this time is in a unstable condition. Patient with multiple metabolic derangements along with significantly low blood pressure on multiple pressors. Patient's prognosis is poor at this time. Patient is full code at this time. Neurology will continue to follow. Please feel free to contact Neurology with additional questions or concerns. Past Medical History Past Medical History: Atrial Fibrillation, Asthma, Diabetes Mellitus, Hyper tension Additional Past Medical History / Comment(s): Herpes type 2, "some kind of heart condition, electrical part doesn't work" divirticulitis chronic back pain History of Any Multi-Drug Resistant Organisms: None Reported Past Surgical History: Orthopedic Surgery Additional Past Surgical History / Comment(s): left knee surgery Past Psychological History: Anxiety, Depression Smoking Status: Former smoker Past Alcohol Use History: None Reported Past Drug Use History: None Reported - Past Family History Mother Additional Family Medical History / Comment(s): Mother is alive with history of atrial fibrillation and asthma. Father Additional Family Medical History / Comment(s): Father in his 60s. Patient did not know anything about her father's history. Patient does not have any brothers, sisters, children. Medications and Allergies Home Medications Medication Instructions Recorded Confirmed Type Ranitidine HCl [Zantac] 150 mg PO BID 04/07/14 04/13/19 History amLODIPine BESYLATE/BENAZEPRIL 1 cap PO DAILY 04/07/14 04/13/19 History [Lotrel 5-10 mg Capsule] metFORMIN HCL 1,000 mg PO BID 04/07/14 04/13/19 History Albuterol Inhaler [Ventolin Hfa 1 - 2 puff INHALATION RT-Q6H PRN 12/03/18 04/13/19 History Inhaler] Atorvastatin [Lipitor] 20 mg PO HS 12/03/18 04/13/19 History DULoxetine HCL [Cymbalta] 60 mg PO DAILY 12/03/18 04/13/19 History Flecainide [Tambocor] 50 mg PO Q12HR 12/03/18 04/13/19 History Insulin Glargine,Hum.rec.anlog 46 unit SQ PC-SUPPER 12/03/18 04/13/19 History [Basaglar Kwikpen U-100] Insulin Regular, Human [humulin R 25 unit SQ BID 12/03/18 04/13/19 History U-500 Kwikpen] LORazepam [Ativan] 2 mg PO TID PRN 12/03/18 04/13/19 History Loratadine [Claritin] 10 mg PO DAILY 12/03/18 04/13/19 History Metoprolol Succinate [Toprol Xl] 100 mg PO DAILY 12/03/18 04/13/19 History Warfarin [Coumadin] 2.5 mg PO DAILY 12/03/18 04/13/19 History Ysdzlbs-Zaxa-Iosw [id number] 1 tab PO Q4HR PRN 04/13/19 04/13/19 History [Excedrin] DULoxetine HCL [Cymbalta] 30 mg PO DAILY 04/13/19 04/13/19 History traMADol HCL [Ultram] 50 mg PO TID PRN 04/13/19 04/13/19 History Allergies Allergy/AdvReac Type Severity Reaction Status Date / Time No Known Allergies Allergy Verified 04/13/19 22:02 Physical Examination - Vital Signs Vital Signs: Vital Signs Temp Pulse Resp BP Pulse Ox 04/14/19 09:00 114 H 19 104/63 87 L 04/14/19 08:45 114 H 22 99/34 74 L 04/14/19 08:30 118 H 12 70/37 73 L 04/14/19 08:15 97.6 F 115 H 12 66/43 72 L 04/14/19 08:00 118 H 6 L 114/63 04/14/19 07:52 117 H 04/14/19 07:45 117 H 21 125/85 82 L 04/14/19 07:30 116 H 4 L 87 L 04/14/19 07:15 109 H 7 L 90 L 04/14/19 07:00 108 H 20 90 L 04/14/19 06:30 116 H 26 H 04/14/19 06:00 156 H 20 04/14/19 05:30 152 H 26 H 04/14/19 05:00 112 H 26 H 83/65 04/14/19 04:30 113 H 25 H 173/79 04/14/19 04:00 19 L 24 97/80 04/14/19 03:46 71 19 04/14/19 03:13 98.9 F 116 H 25 H 108/49 96 04/14/19 02:57 112 H 20 126/87 94 L 04/14/19 02:01 117 H 25 H 139/102 98 04/14/19 01:44 99.3 F 114 H 20 86/48 98 09/03/19 01:21 105 H 18 111/59 99 04/14/19 01:08 141 H 30 H 129/93 97 04/14/19 00:53 168 H 32 H 74/36 96 04/14/19 00:09 163 H 38 H 106/87 97 04/14/19 00:00 24 88/60 04/13/19 23:30 181 H 31 H 99/49 95 04/13/19 23:29 170 H 30 H 91/75 95 04/13/19 23:15 150 H 35 H 99/49 93 L 04/13/19 23:05 177 H 35 H 81/70 100 04/13/19 23:00 174 H 42 H 72/53 93 L 04/13/19 22:30 146 H 37 H 96/47 92 L 04/13/19 22:18 179 H 21 04/13/19 22:17 200 H 04/13/19 21:31 97.9 F 92 20 105/78 95 Intake and Output 04/13/19 04/14/19 04/14/19 22:59 06:59 14:59 Intake Total 5051.252 3098.528 Output Total 10 0 Balance 5041.252 3098.528 Intake: IV 5000 2700 0.9 5000 2150 Dextrose 5% in Water 1, 400 000 ml @ 250 mls/hr IV . Q4H36M [facility] with Sodium Bicarb (1 Meq/ml) 150 ml Rx#:[id number] Zosyn 150 Intake, IV Titration 51.252 398.528 Amount Diltiazem 125 mg In 48.5 Sodium Chloride 0.9% 100 ml @ Per Protocol IV .Q0M [facility] Rx#:[id number] Heparin Sod,Pork in 0.45% 101.167 NaCl 25,000 unit In 0.45 % NaCl 1 250ml.bag @ 6.06 UNITS/KG/HR 10.006 mls/ hr IV .Q24H [facility] Rx#: [id number] Insulin Regular 100 unit 121.289 In Sodium Chloride 0.9% 100 ml @ 0.1 UNITS/KG/HR 16.676 mls/hr IV .Q6H4M [facility] Rx#:[id number] Norepinephrine 32 mg In 176.072 Sodium Chloride 0.9% 218 ml @ 0.05 MCG/KG/MIN 3.87 mls/hr IV .Q24H [facility] Rx#: [id number] fentaNYL (PF) 1,000 mcg 2.752 In Sodium Chloride 0.9% 80 ml @ 2 MCG/KG/HR 33. 022 mls/hr IV .Q3H2M [facility] Rx#:[id number] Output: Urine 10 0 Other: Voiding Method Indwelling Catheter Weight 165.108 kg 165.108 kg ABP, PAP, CO, CI - Last 8 Hours Arterial Blood Pressure 81/68 Arterial Blood Pressure 66/52 Arterial Blood Pressure 57/47 Arterial Blood Pressure 59/49 Arterial Blood Pressure 67/55 Arterial Blood Pressure 72/61 Arterial Blood Pressure 81/70 Arterial Blood Pressure 92/76 Arterial Blood Pressure 92/73 Arterial Blood Pressure 71/61 Arterial Blood Pressure 75/58 Arterial Blood Pressure 84/61 Results - Laboratory Findings CBC and BMP: 04/14/19 03:05 04/14/19 03:05 Abnormal Lab Findings: Abnormal Labs 04/13/19 04/13/19 04/13/19 22:24 22:24 22:24 WBC 21.1 H Hgb 16.1 H Hct 51.2 H Neutrophils # 19.4 H Neutrophils # (Manual) 18.90 H Lymphocytes # 0.8 L Monocytes # (Manual) APTT 19.1 L ABG pH ABG pCO2 ABG pO2 ABG HCO3 ABG Total CO2 ABG O2 Saturation VBG pH VBG pCO2 VBG HCO3 Sodium 129 L Potassium 5.3 H Chloride 90 L Carbon Dioxide 17 L BUN 30 H Creatinine Glucose 677 H* POC Glucose (mg/dL) Plasma Lactic Acid Jasper Phosphorus Total Bilirubin 6.2 H AST 45 H ALT Troponin I 04/13/19 04/14/19 04/14/19 22:24 00:06 00:47 WBC Hgb Hct Neutrophils # Neutrophils # (Manual) Lymphocytes # Monocytes # (Manual) APTT ABG pH ABG pCO2 ABG pO2 ABG HCO3 ABG Total CO2 ABG O2 Saturation VBG pH VBG pCO2 VBG HCO3 Sodium Potassium Chloride Carbon Dioxide BUN Creatinine Glucose POC Glucose (mg/dL) 592 H Plasma Lactic Acid Jasper 8.1 H* Phosphorus Total Bilirubin AST ALT Troponin I 0.452 H* 04/14/19 04/14/19 04/14/19 01:03 01:07 01:40 WBC Hgb Hct Neutrophils # Neutrophils # (Manual) Lymphocytes # Monocytes # (Manual) APTT ABG pH 7.08 L* ABG pCO2 ABG pO2 ABG HCO3 12 L ABG Total CO2 13 L ABG O2 Saturation VBG pH 7.10 L* VBG pCO2 56 H VBG HCO3 16 L Sodium Potassium Chloride Carbon Dioxide BUN Creatinine Glucose POC Glucose (mg/dL) 551 H Plasma Lactic Acid [place]asper Phosphorus Total Bilirubin AST ALT Troponin I 04/14/19 04/14/19 04/14/19 02:08 03:05 03:05 WBC Hgb Hct Neutrophils # Neutrophils # (Manual) Lymphocytes # Monocytes # (Manual) APTT ABG pH ABG pCO2 ABG pO2 ABG HCO3 ABG Total CO2 ABG O2 Saturation VBG pH 6.93 L* VBG pCO2 67 H VBG HCO3 13 L Sodium Potassium Chloride Carbon Dioxide BUN Creatinine Glucose POC Glucose (mg/dL) 543 H Plasma Lactic Acid [place]asper Phosphorus Total Bilirubin AST ALT Troponin I 1.150 H* 04/14/19 04/14/19 04/14/19 03:05 03:05 03:05 WBC 31.2 H Hgb Hct Neutrophils # Neutrophils # (Manual) 24.90 H Lymphocytes # Monocytes # (Manual) 1.56 H APTT ABG pH ABG pCO2 ABG pO2 ABG HCO3 ABG Total CO2 ABG O2 Saturation VBG pH VBG pCO2 VBG HCO3 Sodium Potassium Chloride Carbon Dioxide 12 L BUN 32 H Creatinine 1.72 H Glucose 424 H POC Glucose (mg/dL) Plasma Lactic Acid Jasper 17.1 H* Phosphorus 8.3 H Total Bilirubin 6.6 H AST 338 H ALT 92 H Troponin I 04/14/19 04/14/19 04/14/19 03:05 03:08 04:14 WBC Hgb Hct Neutrophils # Neutrophils # (Manual) Lymphocytes # Monocytes # (Manual) APTT 30.7 H ABG pH ABG pCO2 ABG pO2 ABG HCO3 ABG Total CO2 ABG O2 Saturation VBG pH VBG pCO2 VBG HCO3 Sodium Potassium Chloride Carbon Dioxide BUN Creatinine Glucose POC Glucose (mg/dL) 436 H 493 H Plasma Lactic Acid [place]asper Phosphorus Total Bilirubin AST ALT Troponin I 04/14/19 04/14/19 04/14/19 05:00 07:06 07:44 WBC Hgb Hct Neutrophils # Neutrophils # (Manual) Lymphocytes # Monocytes # (Manual) APTT ABG pH 6.92 L* 7.13 L* ABG pCO2 66 H 51 H ABG pO2 117 H 59 L* ABG HCO3 13 L 17 L ABG Total CO2 15 L 18 L ABG O2 Saturation 86.1 L VBG pH VBG pCO2 VBG HCO3 Sodium Potassium Chloride Carbon Dioxide BUN Creatinine Glucose POC Glucose (mg/dL) 320 H Plasma Lactic Acid Jasper Phosphorus Total Bilirubin AST ALT Troponin I 04/14/19 04/14/19 04/14/19 08:00 09:29 10:09 WBC Hgb Hct Neutrophils # Neutrophils # (Manual) Lymphocytes # Monocytes # (Manual) APTT ABG pH ABG pCO2 ABG pO2 ABG HCO3 ABG Total CO2 ABG O2 Saturation VBG pH VBG pCO2 VBG HCO3 Sodium Potassium Chloride Carbon Dioxide BUN Creatinine Glucose POC Glucose (mg/dL) 271 H 234 H 229 H Plasma Lactic Acid Jasper Phosphorus Total Bilirubin AST ALT Troponin I
[2019-04-14 15:13] LABS: Glucose,Whole Blood 194 mg/dL (75-99)
--- NOTE | 2019-04-14 15:24 | EEG ---
ELECTROENCEPHALOGRAM REPORT PROCEDURE DATE: 04/14/2019. ELECTROENCEPHALOGRAM (EEG) REPORT: TECHNIQUE: A routine 18 channel EEG was performed with video using the 10-20 international placement system. HISTORY: Patient brought to the emergency room and went into cardiac arrest, has coded 3 times since admission. Patient is currently intubated. CURRENT MEDICATIONS: Potassium chloride, piperacillin, norepinephrine, insulin, heparin, albuterol. STUDY DURATION: 25 minutes. FINDINGS: BACKGROUND: Please note that this recording was of low amplitude and interpretation was performed at 3 microvolt sensitivity. EKG artifact was noted throughout recording. BACKGROUND: A sustained posterior dominant rhythm was not seen. ACTIVATION: HYPERVENTILATION: Not performed. PHOTIC STIMULATION: No driving seen. SLEEP: Distinctive sleep stages not seen. ABNORMALITIES: This EEG primarily demonstrated diffuse electrical suppression. Occasionally, some low amplitude, generalized, single spike wave discharges were seen. These were not definitively epileptiform in nature as they did not all have a fully reproducible cerebral field. Review of the video did not show any associated clinical symptoms. Never the less, an epileptiform etiology cannot necessarily be excluded. IMPRESSION: Markedly abnormal EEG. This EEG demonstrates diffuse electrical suppression with some rare single generalized potentially epileptiform spike and slow wave bursts. These findings indicate severe diffuse cerebral dysfunction as may be seen in anoxic or hypoxic encephalopathy. Clinical correlation is recommended. These findings were called to the patient's nurse at 2:32 pm on 04/14/2019. MMODL / IJN: [id number] /
[2019-04-14 15:46] LABS: HGB 5.5 gm/dL (11.4-16.0)
[2019-04-14 16:07] VITALS: BP 84/37; PULSE 81; TEMP 94.7
[2019-04-14 16:12] LABS: Glucose,Whole Blood 181 mg/dL (75-99)
--- NOTE | 2019-04-14 16:14 | P.PN ---
Progress Note - Text Progress Note Date: 04/14/19 Patient continues to be doing very poorly, profoundly hypotensive, with systolic blood pressures in the 50s-60s, and diastolic in the 30s and 40s. Patient is in sinus rhythm, currently at a rate of 84 BPM, she is hypothermic, with a core temp of 94-95 degrees Fahrenheit. Patient is on 1 mcg/kg/m of norepinephrine which is 165 mics per minute of levophed, and vasopressin at 0.04 units/min, epinephrine drip is at 0.04 mics per kilo per minute, patient has been anuric. Latest blood gas showed pO2 of 39, pCO2 of 62, and pH of 7.13, profound hypoxemic respiratory failure, and a combination of severe metabolic and respiratory acidosis. These blood gases were done on the vent settings with assist control mode of ventilation with a rate of 28, tidal volume of 350, FiO2 100% and PEEP of 10, since then PEEP was increased to 22, patient remains on FiO2 100%, tidal volume is at 350, and rate is at 28. O2 saturation is 57-73, peak airway pressures are elevated at 47, with the plateau pressure of 39, likely to the possibility of ARDS/pulmonary edema. Bicarb drip is infusing at a rate of 250 ML per hour, 9 normal saline is at 150, insulin is infusing at a rate of 17 units per hour, heparin drip has been on hold related to the bloody drainage from the OG tube. Echocardiogram showed severely impaired left surgical systolic function with an EF of 25-30%. EEG was done, and was read by Dr. Thomas, and the findings demonstrated diffuse electrical suppression with some rare single generalized potentially epileptiform spike and slow wave bursts, that could possibly indicate severe diffuse cerebral dysfunction typically seen in anoxic or hypoxic encephalopathy, epileptiform etiology could not be entirely excluded. She continues on empiric antibiotics, in the form of Zosyn. We have been unable to recheck electrolytes, in view of immediate hemolysis of the blood samples. Neurogically patient remains unresponsive, and deeply comatose, with absence of corneal, gag or breathing reflexes. Response to any stimulation. She is in profound shock, with no palpable distal pulses, and extremities remain cold and mottled. Her only next of kin is her mother Dayanara Pearson, who developed shortness of breath earlier today and had to go downstairs to the emergency room for evaluation. There is no other family members or next of kin, other than the patient's best friend and and the patient's boyfriend. I called the patient's mother Dayanara Pearson on her cell phone and updated on the patient's condition, lack of improvement despite maximum medical treatment and life-support. I explained to her that the patient is an massive shock with evidence of multisystem organ failure, and her chances of survival are rather low. Her mother although very distraught and upset, has made a decision to change her CODE STATUS to DO NOT RESUSCITATE, but continue all supportive treatment including life-support right now. Patient's mother has given me permission to speak to the ER physician taking care of her to see if she would be stable enough to come up to the intensive care unit to see her daughter. I spoke to Dr. Guerra on the phone, and discussed possibility of transporting the patient's mother to the unit to see the patient. Dr. Guerra indicated that patient's mother should be able to brought up to the intensive care with a nurse, and proper monitoring to see her daughter. And this will be arranged with the mixing house operator and the nursing staff. For now we'll continue with all supportive treatment including life-support, but will not proceed with resuscitation efforts in the event of cardiac arrest per patient's mother's wishes.
[2019-04-14 21:12] LABS: Hemoglobin A1C 9.8 % (4.0-6.0)
[2019-04-15 12:06] LABS: ABG PO2 59 mmHg (83-108)
== END 2019-04-14 21:13 | disposition expired | DRG 871 ==
LOC: EC 21:29 → 2SICU 04-14 00:38
PROVIDERS: ADMIT Internal Medicine; ATTEND Internal Medicine
PROC: 0BH18EZ Insertion of Endotracheal Airway into Trachea, Via Natural or Artificial Opening Endoscopic (ICD-10-PCS; principal; 2019-04-14)
PROC: 5A1935Z Respiratory Ventilation, Less than 24 Consecutive Hours (ICD-10-PCS; principal; 2019-04-14)
PROC: 05HM33Z Insertion of Infusion Device into Right Internal Jugular Vein, Percutaneous Approach (ICD-10-PCS; principal; 2019-04-14)
DX: A41.9 Sepsis, unspecified organism (principal); J96.01 Acute respiratory failure with hypoxia; E11.11 Type 2 diabetes mellitus with ketoacidosis with coma; J96.02 Acute respiratory failure with hypercapnia; R40.2313 Coma scale, best motor response, none, at hospital admission; R40.2113 Coma scale, eyes open, never, at hospital admission; R40.2213 Coma scale, best verbal response, none, at hospital admission; Z68.44 Body mass index [BMI] 60.0-69.9, adult; E87.4 Mixed disorder of acid-base balance; F33.9 Major depressive disorder, recurrent, unspecified; G93.1 Anoxic brain damage, not elsewhere classified; J81.1 Chronic pulmonary edema; K56.7 Ileus, unspecified; R57.0 Cardiogenic shock; E66.01 Morbid (severe) obesity due to excess calories; I46.9 Cardiac arrest, cause unspecified; E78.5 Hyperlipidemia, unspecified; I48.2 Chronic atrial fibrillation; F41.9 Anxiety disorder, unspecified; I11.9 Hypertensive heart disease without heart failure; Z66 Do not resuscitate; J45.20 Mild intermittent asthma, uncomplicated; R79.1 Abnormal coagulation profile; Z72.0 Tobacco use; Z79.01 Long term (current) use of anticoagulants; Z79.4 Long term (current) use of insulin; Z79.899 Other long term (current) drug therapy; Z82.5 Family history of asthma and other chronic lower respiratory diseases
CPT/HCPCS: 31500; 36415; 36556; 71045; 80053; 82009; 82803; 82805; 83036; 83605; 83735; 84100; 84484; 85025; 85027; 85610; 85730; 86850; 86900; 86901; 93005; 93306; 94002; 94640; 94660; 94770; 95816; 96365; 96366; 96375; 96376; 99291; 99292